=== PATIENT | male | born 1950 | race Caucasian/White ===

== ENCOUNTER 2016-02-22 02:11 | Emergency (ER) | payer OTHER ==
[2016-02-22 02:18] VITALS: TEMP 98.3
[2016-02-22 02:46] LABS: Appearance,Urine Cloudy (Clear); Bilirubin,Urine Negative (Negative); Glucose,Urine (UA) Negative (Negative); Ketones,Urine 1+ (Negative); Leukocyte Esterase,Urine Large (Negative); Mucus,Urine Rare /hpf; Nitrite,Urine Positive (Negative); PH, Urine 5.5 (5.0-8.0); Particle Count 20324; Protein,Urine Trace (Negative); RBC,Urine 7 /hpf (0-5); Specific Gravity,Urine 1.012 (1.001-1.035); UA Billing (MACRO vs. MICRO) MICRO; Urobilinogen,Urine <2.0 mg/dL (<2.0); WBC,Urine >182 /hpf (0-5)
[2016-02-22] MEDS ORDERED: CIPROFLOXACIN HCL 500 MG TAB PO STA (03:11)
--- NOTE | 2016-02-22 03:13 | ED ---
General Adult HPI - General Chief complaint: Urogenital Stated complaint: Male Time Seen by Provider: 02/22/16 02:23 Source: patient, RN notes reviewed, old records reviewed Mode of arrival: ambulatory Limitations: no limitations - History of Present Illness Initial comments: This is a 65-year-old male the ER for evaluation. This patient presents for evaluation of clogged Manrique. Patient unable to urinate. Patient was seen by his urologist earlier today and had Manrique removed after bowel movement urinary retention. Patient states he did have one initial urination and since then has not been able to urinate by himself. Complains of severe abdominal pain no bleeding - Related Data Home Medications Medication Instructions Recorded Confirmed Finasteride [Proscar] 5 mg PO DAILY 02/04/16 02/22/16 Previous Rx's Medication Instructions Recorded Tamsulosin [Flomax] 0.4 mg PO DAILY #7 cap 12/14/15 Ciprofloxacin HCl [Cipro] 500 mg PO Q12HR #20 tablet 02/22/16 Nitrofurantoin Monohyd/M-Cryst 100 mg PO Q12HR #14 cap 02/22/16 [Macrobid] Allergies Allergy/AdvReac Type Severity Reaction Status Date / Time No Known Allergies Allergy Verified 02/22/16 02:19 Review of Systems ROS Statement: Those systems with pertinent positive or pertinent negative responses have been documented in the HPI. ROS Other: All systems not noted in ROS Statement are negative. Past Medical History Past Medical History: No Reported History Additional Past Medical History / Comment(s): urine retention, BPH History of Any Multi-Drug Resistant Organisms: None Reported Past Surgical History: No Surgical Hx Reported Past Psychological History: No Psychological Hx Reported Smoking Status: Never smoker Past Alcohol Use History: None Reported Past Drug Use History: None Reported General Exam Limitations: no limitations General appearance: alert, in no apparent distress, anxious Head exam: Present: atraumatic, normocephalic, normal inspection Eye exam: Present: normal appearance, PERRL, EOMI. Absent: scleral icterus, conjunctival injection, periorbital swelling ENT exam: Present: normal exam, mucous membranes moist Neck exam: Present: normal inspection. Absent: tenderness, meningismus, lymphadenopathy Respiratory exam: Present: normal lung sounds bilaterally. Absent: respiratory distress, wheezes, rales, rhonchi, stridor Cardiovascular Exam: Present: regular rate, normal rhythm, normal heart sounds. Absent: systolic murmur, diastolic murmur, rubs, gallop, clicks GI/Abdominal exam: Present: soft, normal bowel sounds. Absent: distended, tenderness, guarding, rebound, rigid Extremities exam: Present: normal inspection, full ROM, normal capillary refill. Absent: tenderness, pedal edema, joint swelling, calf tenderness Back exam: Present: normal inspection Neurological exam: Present: alert, oriented X3, CN II-XII intact Psychiatric exam: Present: normal affect, normal mood Skin exam: Present: warm, dry, intact, normal color. Absent: rash Course Vital Signs 02/22/16 02:12 Temperature 98.3 F Pulse Rate 116 H Respiratory 18 Rate Blood Pressure 170/90 O2 Sat by Pulse 99 Oximetry - Reevaluation(s) Reevaluation #1: 02/22/16 03:40 Manrique catheter was inserted with good relief of symptoms Medical Decision Making - Medical Decision Making 65 male with recurrent UTI, recurrent urinary retention. Patient has full place and can be discharged home - Lab Data Lab Results 02/22/16 Range/Units 02:30 Urine Color Yellow Urine Appearance Cloudy (Clear) Urine pH 5.5 (5.0-8.0) Ur Specific [place] 1.012 (1.001-1.035) Urine Protein Trace H (Negative) Urine Glucose (UA) Negative (Negative) Urine Ketones 1+ H (Negative) Urine Blood Trace H (Negative) Urine Nitrate Positive (Negative) Urine Bilirubin Negative (Negative) Urine Urobilinogen <2.0 (<2.0) mg/dL Ur Leukocyte Esterase Large H (Negative) Urine RBC 7 H (0-5) /hpf Urine WBC >182 H (0-5) /hpf Urine WBC Clumps Many H (None) /hpf Urine Mucus Rare H (None) /hpf Disposition Clinical Impression: Urinary retention, UTI (urinary tract infection) Disposition: HOME SELF-CARE Condition: Good Instructions: Urinary Tract Infection in Men (ED), Urinary Retention in Men (ED ) Prescriptions: Ciprofloxacin HCl [Cipro] 500 mg PO Q12HR #20 tablet Nitrofurantoin Monohyd/M-Cryst [Macrobid] 100 mg PO Q12HR #14 cap Referrals: None,Stated [Primary Care Provider] - 1-2 days
[2016-02-22 03:40] VITALS: BP 116/76; PULSE 80; RESP 16
== END 2016-02-22 03:39 | disposition home or self-care (01) ==
LOC: EC 02:11
DX: R33.9 Retention of urine, unspecified (principal); N40.1 Benign prostatic hyperplasia with lower urinary tract symptoms; N39.0 Urinary tract infection, site not specified; Z79.899 Other long term (current) drug therapy
CPT/HCPCS: 51702; 81001; 87077; 87086; 87186; 99284

== ENCOUNTER 2016-03-31 10:47 | Emergency (ER) | payer OTHER ==
[2016-03-31 11:02] VITALS: BP 153/87; PULSE 107; RESP 20; TEMP 96.8
--- NOTE | 2016-03-31 11:53 | ED ---
Male Urogenital HPI - General Chief complaint: Urogenital Stated complaint: block in catheter Time Seen by Provider: 03/31/16 11:17 Source: patient, RN notes reviewed Mode of arrival: ambulatory Limitations: no limitations - History of Present Illness Initial comments: 65-year-old male present emergency Department chief complaint of foot From. Patient States That He Feels That His Block. Patient States He Is Getting Some Urine out States She Has Lower Abdominal Pressure. Patient States He Normally Has Problems Every Few Weeks with His Catheter. Patient States Has Not Changed in 3 Weeks. Patient Denies Fever, Chills, Flank Pain. Patient States He Does Not Feel Sick. Patient States That His Urine Has Been Cloudy. - Related Data Home Medications Medication Instructions Recorded Confirmed Finasteride [Proscar] 5 mg PO DAILY 02/04/16 02/22/16 Previous Rx's Medication Instructions Recorded Tamsulosin [Flomax] 0.4 mg PO DAILY #7 cap 12/14/15 Nitrofurantoin Monohyd/M-Cryst 100 mg PO Q12HR #14 cap 02/22/16 [Macrobid] RX: Ciprofloxacin HCl [Cipro] 500 mg PO Q12HR #20 tablet 02/22/16 Ciprofloxacin HCl [Cipro] 500 mg PO Q12HR #20 tablet 03/31/16 Allergies Allergy/AdvReac Type Severity Reaction Status Date / Time No Known Allergies Allergy Verified 02/22/16 02:19 Review of Systems ROS Statement: Those systems with pertinent positive or pertinent negative responses have been documented in the HPI. ROS Other: All systems not noted in ROS Statement are negative. Past Medical History Past Medical History: No Reported History Additional Past Medical History / Comment(s): urine retention, BPH History of Any Multi-Drug Resistant Organisms: None Reported Past Surgical History: No Surgical Hx Reported Past Psychological History: No Psychological Hx Reported Smoking Status: Never smoker Past Alcohol Use History: None Reported Past Drug Use History: None Reported General Exam Limitations: no limitations General appearance: alert, in no apparent distress Neck exam: Present: normal inspection. Absent: tenderness, meningismus, lymphadenopathy Respiratory exam: Present: normal lung sounds bilaterally. Absent: respiratory distress, wheezes, rales, rhonchi, stridor Cardiovascular Exam: Present: regular rate, normal rhythm, normal heart sounds. Absent: systolic murmur, diastolic murmur, rubs, gallop, clicks GI/Abdominal exam: Present: soft, tenderness (Mild suprapubic tenderness), normal bowel sounds. Absent: distended, guarding, rebound, rigid exam: Present: other (Manrique catheter in place there is some crusting, drainage noted around the catheter.) Back exam: Absent: CVA tenderness (R), CVA tenderness (L) Course Vital Signs 03/31/16 11:00 Temperature 96.8 F L Pulse Rate 107 H Respiratory 20 Rate Blood Pressure 153/87 O2 Sat by Pulse 100 Oximetry Medical Decision Making - Lab Data Lab Results 03/31/16 Range/Units 11:50 Urine Color Yellow Urine Appearance Turbid (Clear) Urine pH 6.5 (5.0-8.0) Ur Specific [place] 1.016 (1.001-1.035) Urine Protein 1+ H (Negative) Urine Glucose (UA) Negative (Negative) Urine Ketones Negative (Negative) Urine Blood Moderate H (Negative) Urine Nitrate Positive (Negative) Urine Bilirubin Negative (Negative) Urine Urobilinogen <2.0 (<2.0) mg/dL Ur Leukocyte Esterase Large H (Negative) Urine RBC >182 H (0-5) /hpf Urine WBC >182 H (0-5) /hpf Urine Bacteria Rare H (None) /hpf Disposition Clinical Impression: UTI (urinary tract infection), Manrique catheter problem Disposition: HOME SELF-CARE Condition: Stable Instructions: Urinary Tract Infection in Men (ED) Additional Instructions: Please return to the Emergency Department if symptoms worsen or any other concerns. Prescriptions: Ciprofloxacin HCl [Cipro] 500 mg PO Q12HR #20 tablet Time of Disposition: 12:33
[2016-03-31 12:28] LABS: Appearance,Urine Turbid (Clear); Bacteria,Urine Rare /hpf; Bilirubin,Urine Negative (Negative); Glucose,Urine (UA) Negative (Negative); Ketones,Urine Negative (Negative); Leukocyte Esterase,Urine Large (Negative); Nitrite,Urine Positive (Negative); PH, Urine 6.5 (5.0-8.0); Particle Count 104383; Protein,Urine 1+ (Negative); RBC,Urine >182 /hpf (0-5); Specific Gravity,Urine 1.016 (1.001-1.035); UA Billing (MACRO vs. MICRO) MICRO; Urobilinogen,Urine <2.0 mg/dL (<2.0); WBC,Urine >182 /hpf (0-5)
== END 2016-03-31 12:50 | disposition home or self-care (01) ==
LOC: EC 10:47
DX: N39.0 Urinary tract infection, site not specified (principal); T83.018A Breakdown (mechanical) of other urinary catheter, initial encounter; N40.0 Benign prostatic hyperplasia without lower urinary tract symptoms; Z79.899 Other long term (current) drug therapy
CPT/HCPCS: 81001; 87077; 87086; 87186; 99283

== ENCOUNTER 2016-04-20 12:42 | Emergency (ER) | payer OTHER ==
--- NOTE | 2016-04-20 15:01 | ED ---
General Adult HPI - General Chief complaint: Recheck/Abnormal Lab/Rx Stated complaint: Cath Blocked Time Seen by Provider: 04/20/16 13:13 Source: patient Mode of arrival: ambulatory Limitations: no limitations - History of Present Illness Initial comments: This patient is a 65-year-old man who presents to be evaluated for what he suspects is an obstruction of his Manrique catheter. The patient states that he had noted a little bit of blood present, and then he hadn't had much drainage overnight. Patient has had Manrique catheter for months now and he states this is related to BPH. It was last changed approximately 3 weeks ago. The patient has some mild suprapubic pressure. Denies fever or chills, palpitations or other symptoms of infection. -: hour(s) Quality: dull Consistency: constant Improves with: none Worsens with: none Associated Symptoms: denies other symptoms Treatments Prior to Arrival: none - Related Data Home Medications Medication Instructions Recorded Confirmed Finasteride [Proscar] 5 mg PO DAILY 02/04/16 04/20/16 Previous Rx's Medication Instructions Recorded Tamsulosin [Flomax] 0.4 mg PO DAILY #7 cap 12/14/15 Ciprofloxacin HCl [Cipro] 500 mg PO Q12HR #14 tablet 04/20/16 Allergies Allergy/AdvReac Type Severity Reaction Status Date / Time No Known Allergies Allergy Verified 04/20/16 14:03 Review of Systems ROS Statement: Those systems with pertinent positive or pertinent negative responses have been documented in the HPI. ROS Other: All systems not noted in ROS Statement are negative. Constitutional: Denies: fever, chills Respiratory: Denies: cough, dyspnea Cardiovascular: Denies: chest pain, palpitations, syncope Gastrointestinal: Reports: as per HPI, abdominal pain. Denies: nausea, vomiting , diarrhea, constipation Genitourinary: Reports: hematuria, other (Indwelling catheter). Denies: testicular pain, testicular mass Musculoskeletal: Denies: back pain Skin: Denies: rash Neurological: Denies: headache, weakness, numbness Past Medical History Past Medical History: No Reported History Additional Past Medical History / Comment(s): urine retention, BPH History of Any Multi-Drug Resistant Organisms: None Reported Past Surgical History: No Surgical Hx Reported Past Psychological History: No Psychological Hx Reported Smoking Status: Never smoker Past Alcohol Use History: None Reported Past Drug Use History: None Reported General Exam Limitations: no limitations General appearance: alert, in no apparent distress Head exam: Present: atraumatic, normocephalic Eye exam: Present: normal appearance. Absent: scleral icterus, conjunctival injection ENT exam: Present: normal oropharynx Neck exam: Present: normal inspection, full ROM Respiratory exam: Present: normal lung sounds bilaterally. Absent: respiratory distress, wheezes, rales, rhonchi, stridor Cardiovascular Exam: Present: regular rate, normal rhythm, normal heart sounds. Absent: systolic murmur, diastolic murmur, rubs, gallop GI/Abdominal exam: Present: soft, tenderness, normal bowel sounds, mass, other ( There is some mild suprapubic fullness and mild tenderness consistent with palpable bladder). Absent: distended, guarding, rebound, rigid, pulsatile mass , hernia exam: Present: other (There is an indwelling Manrique catheter) Extremities exam: Present: normal inspection, normal capillary refill. Absent: pedal edema, calf tenderness Back exam: Present: normal inspection. Absent: CVA tenderness (R), CVA tenderness (L) Skin exam: Present: warm, dry, intact, normal color. Absent: rash, cyanosis, diaphoretic, erythema, petechiae, pallor, mottled Course Vital Signs 04/20/16 13:06 Temperature 97.1 F L Pulse Rate 86 Respiratory 20 Rate Blood Pressure 150/96 O2 Sat by Pulse 98 Oximetry Procedures - Catheter Insertion (Urinary) Indications: replaced: fell out/removed/no longer functioning Bladder Scan/US before Catheterization: Yes Type of Catheter Inserted: Manrique Catheter Balloon Size (mLs): 10 Topical Anesthesia Used: No Results: successfully catheterized-immediate flow Patient Tolerated Procedure: well Complications: none, other (The urine is yellow with a couple of small clots. The urine is grossly cloudy.) Disposition Clinical Impression: UTI (urinary tract infection), Manrique catheter problem Disposition: HOME SELF-CARE Condition: Fair Instructions: Urinary Tract Infection in Men (ED), Manrique Catheter Placement and Care (ED) Prescriptions: Ciprofloxacin HCl [Cipro] 500 mg PO Q12HR #14 tablet Referrals: None,Stated [Primary Care Provider] - 1-2 days Jarrod Waters MD [STAFF PHYSICIAN] - 1-2 days
[2016-04-20] MEDS ORDERED: LEVOFLOXACIN 750 MG TAB PO STA (15:04)
[2016-04-20 15:21] LABS: Appearance,Urine Cloudy (Clear); Bacteria,Urine Moderate /hpf; Bilirubin,Urine Negative (Negative); Glucose,Urine (UA) Negative (Negative); Ketones,Urine Negative (Negative); Leukocyte Esterase,Urine Large (Negative); Mucus,Urine Rare /hpf; Nitrite,Urine Negative (Negative); PH, Urine 5.5 (5.0-8.0); Particle Count 113929; Protein,Urine 1+ (Negative); RBC,Urine >182 /hpf (0-5); Specific Gravity,Urine 1.012 (1.001-1.035); UA Billing (MACRO vs. MICRO) MICRO; Urobilinogen,Urine <2.0 mg/dL (<2.0); WBC,Urine >182 /hpf (0-5)
[2016-04-20 15:32] VITALS: BP 130/85; PULSE 70; RESP 18; TEMP 97.4
== END 2016-04-20 15:31 | disposition home or self-care (01) ==
LOC: EC 12:42
DX: N39.0 Urinary tract infection, site not specified (principal); T83.091A Other mechanical complication of indwelling urethral catheter, initial encounter; N40.0 Benign prostatic hyperplasia without lower urinary tract symptoms; Z79.899 Other long term (current) drug therapy
CPT/HCPCS: 51701; 81001; 87077; 87086; 87186; 99283

== ENCOUNTER 2016-07-20 08:29 | Emergency (ER) | payer MEDICARE, OTHER ==
[2016-07-20 08:33] VITALS: TEMP 97.8
--- NOTE | 2016-07-20 08:46 | ED ---
Male Urogenital HPI - General Source: patient, RN notes reviewed Mode of arrival: ambulatory Limitations: no limitations <Yolanda Valenzuela - Last Filed: 07/20/16 10:45> <Tato Francis - Last Filed: 07/20/16 10:48> - General Chief complaint: Urogenital Stated complaint: Male Time Seen by Provider: 07/20/16 08:34 - History of Present Illness Initial comments: Patient is a 65-year-old male presents emergency room for evaluation of blocked dinero catheter. Patient states that dinero catheter has been placed for the past 3 months due to BPH. Patient states the last time his catheter was changed was about a month ago. Patient states has been no output in his Dinero bag since last night. Patient states he is beginning to have discomfort in his bladder. Patient states he follows up with Dr. Ann for his care. (Yolanda Valenzuela) - Related Data Home Medications Medication Instructions Recorded Confirmed Finasteride [Proscar] 5 mg PO DAILY 02/04/16 04/20/16 Previous Rx's Medication Instructions Recorded Tamsulosin [Flomax] 0.4 mg PO DAILY #7 cap 12/14/15 Ciprofloxacin HCl [Cipro] 500 mg PO Q12HR #14 tablet 04/20/16 Levofloxacin [Levaquin] 500 mg PO DAILY #6 tab 07/20/16 Allergies Allergy/AdvReac Type Severity Reaction Status Date / Time No Known Allergies Allergy Verified 07/20/16 08:33 Review of Systems ROS Other: All systems not noted in ROS Statement are negative. <Yolanda Valenzuela - Last Filed: 07/20/16 10:45> ROS Other: All systems not noted in ROS Statement are negative. <Tato Francis - Last Filed: 07/20/16 10:48> ROS Statement: Those systems with pertinent positive or pertinent negative responses have been documented in the HPI. Past Medical History Past Medical History: Prostate Disorder Additional Past Medical History / Comment(s): urine retention, BPH History of Any Multi-Drug Resistant Organisms: None Reported Past Surgical History: No Surgical Hx Reported Past Psychological History: No Psychological Hx Reported Smoking Status: Never smoker Past Alcohol Use History: None Reported Past Drug Use History: None Reported <Yolanda Valenzuela - Last Filed: 07/20/16 10:45> General Exam Limitations: no limitations General appearance: alert, anxious Head exam: Present: atraumatic, normocephalic, normal inspection Eye exam: Present: normal appearance ENT exam: Present: normal exam Neck exam: Present: normal inspection Respiratory exam: Present: normal lung sounds bilaterally. Absent: respiratory distress Cardiovascular Exam: Present: regular rate, normal rhythm, normal heart sounds GI/Abdominal exam: Present: soft, tenderness (Suprapubic discomfort), normal bowel sounds. Absent: distended, guarding, rebound, rigid exam: Present: other (Indwelling Dinero catheter present). Absent: normal inspection (Dried feces over shaft of penis, indwelling catheter and upper thighs.) Extremities exam: Present: normal inspection Back exam: Present: normal inspection Neurological exam: Present: alert, oriented X3, CN II-XII intact, normal gait Psychiatric exam: Present: normal affect, normal mood Skin exam: Present: warm, dry, intact, normal color. Absent: rash <Yolanda Valenzuela - Last Filed: 07/20/16 10:45> <Tato Francis - Last Filed: 07/20/16 10:48> - General Exam Comments Initial Comments: Standing up in exam room, mild discomfort (Yolanda Valenzuela) Course <Yolanda Valenzuela - Last Filed: 07/20/16 10:45> <Tato Francis - Last Filed: 07/20/16 10:48> Vital Signs 07/20/16 07/20/16 08:31 10:39 Temperature 97.8 F Pulse Rate 108 H 73 Respiratory 20 16 Rate Blood Pressure 195/102 142/83 O2 Sat by Pulse 97 99 Oximetry - Reevaluation(s) Reevaluation #1: 07/20/16 10:48 I did personally do a [id number] evaluation the patient. Patient is feeling much improved his abdomen soft nontender fully catheter is placed. It does appear to be functioning well patient will be discharged. I do agree with the assessment and plan (Tato Francis) Medical Decision Making <Yolanda Valenzuela - Last Filed: 07/20/16 10:45> <Tato Francis - Last Filed: 07/20/16 10:48> - Medical Decision Making Patient is a 65-year-old male presents emergency room for evaluation urinary retention. Patient states his Dinero catheter has not been draining last night. Upon examination, patient had feces all over shaft of his penis around the Dinero catheter and on his upper thighs. Patient states that he was not taught how to properly clean the Dinero catheter. Once Dinero catheter was removed, small blood clots flowing from the urethra. A lot of exudate noted on the indwelling portion of the Dinero catheter. Urinalysis was ordered, Dinero catheter was replaced and bladder was flushed. Urinalysis suspicious for urinary tract infection. Patient be placed on Levaquin. Patient given his first dose here. Advised patient to follow-up with his urologist. Return parameters discussed. Case discussed Dr. Francis. (Yolanda Valenzuela) - Lab Data Lab Results 07/20/16 Range/Units 09:30 Urine Color Yellow Urine Appearance Cloudy (Clear) Urine pH 6.0 (5.0-8.0) Ur Specific [place] 1.014 (1.001-1.035) Urine Protein 1+ H (Negative) Urine Glucose (UA) Negative (Negative) Urine Ketones Negative (Negative) Urine Blood Moderate H (Negative) Urine Nitrite Negative (Negative) Urine Bilirubin Negative (Negative) Urine Urobilinogen <2.0 (<2.0) mg/dL Ur Leukocyte Esterase Large H (Negative) Urine RBC >182 H (0-5) /hpf Urine WBC >182 H (0-5) /hpf Urine WBC Clumps Occasional H (None) /hpf Urine Bacteria Many H (None) /hpf Urine Mucus Rare H (None) /hpf Disposition Time of Disposition: 10:07 <Yolanda Valenzuela - Last Filed: 07/20/16 10:45> <Tato Francis - Last Filed: 07/20/16 10:48> Clinical Impression: Urinary tract infection, Encounter for Dinero catheter replacement Disposition: HOME SELF-CARE Condition: Good Instructions: Urinary Tract Infection in Men (ED), Dinero Catheter Placement and Care (ED) Additional Instructions: Keep Dinero catheter clean. Please follow-up with urologist in 24-48 hours. Begin taking Levaquin tomorrow as directed. If any new symptom arises or symptoms worsen, return to ER as soon as possible. Prescriptions: Levofloxacin [Levaquin] 500 mg PO DAILY #6 tab Referrals: Yaya Ann MD [STAFF PHYSICIAN] - 1-2 days
[2016-07-20 10:00] LABS: Appearance,Urine Cloudy (Clear); Bacteria,Urine Many /hpf; Bilirubin,Urine Negative (Negative); Glucose,Urine (UA) Negative (Negative); Ketones,Urine Negative (Negative); Leukocyte Esterase,Urine Large (Negative); Mucus,Urine Rare /hpf; Nitrite,Urine Negative (Negative); Particle Count 36464; Protein,Urine 1+ (Negative); RBC,Urine >182 /hpf (0-5); Specific Gravity,Urine 1.014 (1.001-1.035); UA Billing (MACRO vs. MICRO) MICRO; Urobilinogen,Urine <2.0 mg/dL (<2.0); WBC,Urine >182 /hpf (0-5)
[2016-07-20] MEDS ORDERED: LEVOFLOXACIN 500 MG TAB PO STA (10:06)
[2016-07-20 10:42] VITALS: BP 142/83; PULSE 73; RESP 16
== END 2016-07-20 10:42 | disposition home or self-care (01) ==
LOC: EC 08:29
DX: N39.0 Urinary tract infection, site not specified (principal); T83.592A Infection and inflammatory reaction due to indwelling ureteral stent, initial encounter; N40.0 Benign prostatic hyperplasia without lower urinary tract symptoms; Z79.899 Other long term (current) drug therapy; Y73.8 Miscellaneous gastroenterology and urology devices associated with adverse incidents, not elsewhere classified
CPT/HCPCS: 51702; 81001; 99283

== ENCOUNTER 2016-10-27 08:06 | Emergency (ER) | payer MEDICARE, OTHER ==
[2016-10-27 08:11] VITALS: BP 163/94; PULSE 85; RESP 18; TEMP 98.6
--- NOTE | 2016-10-27 08:16 | ED ---
Male Urogenital HPI - General Chief complaint: Urogenital Stated complaint: cath problems Time Seen by Provider: 10/27/16 08:15 Source: patient, RN notes reviewed, old records reviewed Mode of arrival: ambulatory Limitations: no limitations - History of Present Illness Initial comments: 66 year old male presents emergency Department chief complaint of thinking that his catheter is blocked. Patient reports is not been able to produce any urine through his catheter overnight. Patient states he does have some abdominal pain due to some bladder distention. Denies any fever or chills chest pain shortness breath nausea or vomiting. Denies any recent urinary tract infections. Patient follows up with urologist Dr. Ann. Patient reports that this Dinero was placed in August. Patient is exposed to have another Dinero placed the end of October. He relates that he has bandlike catheter due to BPH. Patient denies any recent fever, chills, shortness of breath, chest pain, back pain, abdominal pain, nausea vomiting, numbness or tingling, dysuria or hematuria, constipation or diarrhea, headaches or visual changes, or any other current symptoms - Related Data Home Medications Medication Instructions Recorded Confirmed Finasteride [Proscar] 5 mg PO DAILY 02/04/16 10/27/16 Previous Rx's Medication Instructions Recorded Tamsulosin [Flomax] 0.4 mg PO DAILY #7 cap 12/14/15 Ciprofloxacin HCl [Cipro] 500 mg PO Q12HR #14 tablet 10/27/16 Allergies Allergy/AdvReac Type Severity Reaction Status Date / Time No Known Allergies Allergy Verified 10/27/16 08:48 Review of Systems ROS Statement: Those systems with pertinent positive or pertinent negative responses have been documented in the HPI. ROS Other: All systems not noted in ROS Statement are negative. Past Medical History Past Medical History: Prostate Disorder Additional Past Medical History / Comment(s): urine retention, BPH, dinero catheter History of Any Multi-Drug Resistant Organisms: None Reported Past Surgical History: No Surgical Hx Reported Past Psychological History: No Psychological Hx Reported Smoking Status: Never smoker Past Alcohol Use History: None Reported Past Drug Use History: None Reported General Exam - General Exam Comments Initial Comments: 66-year-old male. No distress. Limitations: no limitations General appearance: alert, in no apparent distress Head exam: Present: atraumatic, normocephalic, normal inspection Eye exam: Present: normal appearance, PERRL, EOMI. Absent: scleral icterus, conjunctival injection, periorbital swelling ENT exam: Present: normal exam, mucous membranes moist Neck exam: Present: normal inspection. Absent: tenderness, meningismus, lymphadenopathy Respiratory exam: Present: normal lung sounds bilaterally. Absent: respiratory distress, wheezes, rales, rhonchi, stridor Cardiovascular Exam: Present: regular rate, normal rhythm, normal heart sounds. Absent: systolic murmur, diastolic murmur, rubs, gallop, clicks GI/Abdominal exam: Present: soft, tenderness (Mild suprapubic tenderness.), normal bowel sounds. Absent: distended, guarding, rebound, rigid exam: Present: other (Indwelling Dinero catheter.). Absent: normal inspection Extremities exam: Present: normal inspection, full ROM, normal capillary refill. Absent: tenderness, pedal edema, joint swelling, calf tenderness Back exam: Present: normal inspection Neurological exam: Present: alert, oriented X3, CN II-XII intact Psychiatric exam: Present: normal affect, normal mood Skin exam: Present: warm, dry, intact, normal color. Absent: rash Course Vital Signs 10/27/16 08:09 Temperature 98.6 F Pulse Rate 85 Respiratory 18 Rate Blood Pressure 163/94 O2 Sat by Pulse 99 Oximetry Medical Decision Making - Medical Decision Making C6-year-old male presents emergency room with a blocked Dinero catheter. At this time we did do a bladder scan in the supposed It is greater than 200 mL. Patient does have some mild to review tenderness. Attempt was made to flush the catheter to break up any clots however it was unsuccessful. Patient will receive a new indwelling Dinero catheter. Urinalysis obtained. His urinalysis does show significant signs of infection. Significant blood with clots were noted within the "Dinero catheter was changed. His functioning at this time. Patient does have some relief of the pressure. Patient will be discharged at this time with close follow-up with urology. Patient agrees to treatment plan will comply. Return parameters were discussed. - Lab Data Lab Results 10/27/16 Range/Units 08:35 Urine Color Yellow Urine Appearance Cloudy (Clear) Urine pH 6.0 (5.0-8.0) Ur Specific [place] 1.017 (1.001-1.035) Urine Protein Trace H (Negative) Urine Glucose (UA) Negative (Negative) Urine Ketones Negative (Negative) Urine Blood Large H (Negative) Urine Nitrite Negative (Negative) Urine Bilirubin Negative (Negative) Urine Urobilinogen <2.0 (<2.0) mg/dL Ur Leukocyte Esterase Large H (Negative) Urine RBC >182 H (0-5) /hpf Urine WBC >182 H (0-5) /hpf Urine WBC Clumps Occasional H (None) /hpf Urine Bacteria Many H (None) /hpf Urine Mucus Occasional H (None) /hpf Disposition Clinical Impression: Malfunction of Dinero catheter, UTI (urinary tract infection) Disposition: HOME SELF-CARE Condition: Good Instructions: Urinary Tract Infection in Men (ED) Additional Instructions: Patient has a follow-up with urologist within the next 1-2 days. Return if there is any further malfunction severe catheter. Patient advised to completely anabiotic prescription for urinary tract infection. Prescriptions: Ciprofloxacin HCl [Cipro] 500 mg PO Q12HR #14 tablet Referrals: None,Stated [Primary Care Provider] - 1-2 days Yaya Ann MD [STAFF PHYSICIAN] - 1-2 days Time of Disposition: 08:57
[2016-10-27 08:55] LABS: Appearance,Urine Cloudy (Clear); Bacteria,Urine Many /hpf; Bilirubin,Urine Negative (Negative); Glucose,Urine (UA) Negative (Negative); Ketones,Urine Negative (Negative); Leukocyte Esterase,Urine Large (Negative); Mucus,Urine Occasional /hpf; Nitrite,Urine Negative (Negative); Particle Count 48622; Protein,Urine Trace (Negative); RBC,Urine >182 /hpf (0-5); Specific Gravity,Urine 1.017 (1.001-1.035); UA Billing (MACRO vs. MICRO) MICRO; Urobilinogen,Urine <2.0 mg/dL (<2.0); WBC,Urine >182 /hpf (0-5)
[2016-10-27] MEDS ORDERED: CIPROFLOXACIN HCL 500 MG TAB PO STA (08:56)
== END 2016-10-27 09:21 | disposition home or self-care (01) ==
LOC: EC 08:06
DX: T83.511A Infection and inflammatory reaction due to indwelling urethral catheter, initial encounter (principal); N39.0 Urinary tract infection, site not specified; Z79.899 Other long term (current) drug therapy; Y84.6 Urinary catheterization as the cause of abnormal reaction of the patient, or of later complication, without mention of misadventure at the time of the procedure
CPT/HCPCS: 51702; 51798; 81001; 87086; 99284

== ENCOUNTER 2017-06-29 02:45 | Emergency (ER) | payer MEDICARE, OTHER ==
[2017-06-29 02:51] VITALS: BP 174/100; PULSE 74; RESP 16; TEMP 98.5
--- NOTE | 2017-06-29 03:16 | ED ---
Male Urogenital HPI - General Chief complaint: Urogenital Stated complaint: Male Time Seen by Provider: 06/29/17 02:57 Source: patient, RN notes reviewed Mode of arrival: ambulatory Limitations: no limitations - History of Present Illness Initial comments: This is a 66-year-old male who presents to the emergency department with chief complaint of Dinero catheter obstruction. Patient states that he has had Dinero catheters once every month for the past 6 months for BPH. He states that they frequently become obstructed and he must have them changed out regularly. Patient states that last night at approximately 6 or 7 PM his urinary catheter stopped draining. He did attempt to flush it at home himself but was unsuccessful. He denies any significant abdominal pain, nausea or vomiting, diarrhea or constipation, fever or chills. He requests to have Dinero catheter changed to allow for successful drainage. Patient does see Dr. Ann, local urologist. - Related Data Home Medications Medication Instructions Recorded Confirmed Finasteride [Proscar] 5 mg PO DAILY 02/04/16 10/27/16 Previous Rx's Medication Instructions Recorded Tamsulosin [Flomax] 0.4 mg PO DAILY #7 cap 12/14/15 Ciprofloxacin HCl [Cipro] 500 mg PO Q12HR #14 tablet 10/27/16 Allergies Allergy/AdvReac Type Severity Reaction Status Date / Time No Known Allergies Allergy Verified 06/29/17 02:51 Review of Systems ROS Statement: Those systems with pertinent positive or pertinent negative responses have been documented in the HPI. ROS Other: All systems not noted in ROS Statement are negative. Past Medical History Past Medical History: Prostate Disorder Additional Past Medical History / Comment(s): urine retention, BPH, dinero catheter History of Any Multi-Drug Resistant Organisms: None Reported Past Surgical History: No Surgical Hx Reported Past Psychological History: No Psychological Hx Reported Smoking Status: Never smoker Past Alcohol Use History: None Reported Past Drug Use History: None Reported General Exam - General Exam Comments Initial Comments: General: Awake and alert, well-developed; in no apparent distress. HEENT: Head atraumatic, normocephalic. Pupils are equal, round and reactive to light. Extraocular movements intact. Oropharynx moist without erythema or exudate. Neck: Supple. Normal ROM. Cardiovascular: Regular rate and rhythm. No murmurs, rubs or gallops. Chest symmetrical. Respiratory: Lungs clear to auscultation bilaterally. No wheezes, rales or rhonchi. Normal respiratory effort with no use of accessory muscles. Abdomen: Soft, non-tender, non-distended. No rigidity, rebound or guarding. Normal bowel sounds in all 4 quadrants. Musculoskeletal: Normal ROM, no tenderness bilateral upper and lower extremities. Ambulating normally. Skin: [place], warm and dry without rashes or lesions. Neurological: Alert and oriented x3. CN II-XII grossly intact. Speech is fluent and answers are appropriate. No focal neuro deficits. Psychiatric: Normal mood and affect. No overt signs of depression or anxiety noted. Limitations: no limitations Course Vital Signs 06/29/17 02:48 Temperature 98.5 F Pulse Rate 74 Respiratory 16 Rate Blood Pressure 174/100 O2 Sat by Pulse 98 Oximetry Medical Decision Making - Medical Decision Making This is a 66-year-old male with chronic Dinero catheter use who presents to the emergency department with chief complaint of Dinero catheter obstruction. Patient states that for the past 8-9 hours his Dinero catheter has not been draining. He did try to flush it himself at home but was unsuccessful. He requests to have a new Dinero catheter placed. He does have a follow-up appointment scheduled with Dr. Ann this week. Denies any symptoms. Vital signs are stable and he is in no acute distress. Catheter was placed and is successfully draining. Patient will be discharged home at this time. He is to follow-up with Dr. Ann as scheduled. Disposition Clinical Impression: Malfunction of Dinero catheter Disposition: HOME SELF-CARE Condition: Good Instructions: Dinero Catheter Placement and Care (ED) Additional Instructions: Follow-up with Dr. Ann as scheduled. Please follow up with primary care provider within 1-2 days. Return to emergency department if symptoms should worsen or any concerns arise. Is patient prescribed a controlled substance at d/c from ED?: No Referrals: None,Stated [Primary Care Provider] - 1-2 days Time of Disposition: 03:19
== END 2017-06-29 03:32 | disposition home or self-care (01) ==
LOC: EC 02:45
DX: T83.091A Other mechanical complication of indwelling urethral catheter, initial encounter (principal); N42.9 Disorder of prostate, unspecified; Z79.899 Other long term (current) drug therapy
CPT/HCPCS: 51702; 99283

== ENCOUNTER 2017-11-25 01:56 | Emergency (ER) | payer MEDICARE, OTHER ==
[2017-11-25 02:14] VITALS: RESP 16; TEMP 98.6
--- NOTE | 2017-11-25 03:00 | ED ---
General Adult HPI - General Source: patient, RN notes reviewed Mode of arrival: ambulatory Limitations: no limitations <Brea Mccarthy - Last Filed: 11/25/17 03:38> <Marely Alcala - Last Filed: 11/25/17 03:58> - General Chief complaint: Recheck/Abnormal Lab/Rx Stated complaint: Blocked catheter Time Seen by Provider: 11/25/17 02:26 - History of Present Illness Initial comments: This is a 67-year-old male who presents to the emergency department with chief complaint of blocked dinero catheter. Patient states that he sees Dr. Ann, urologist. He states that he has a history of BPH. For the past year he has been having monthly changes to a new dinero catheter. Patient states that at around 8 PM this evening his catheter stopped draining. He states that he does have a flush at home that he was told to use if it ever became blocked. He states that he attempted to unblock the catheter 3-4 times but was unsuccessful. Patient denies any abdominal discomfort at this time. He denies any changes in urinary color. Denies any fevers or chills, chest pain or shortness of breath, abdominal pain, nausea or vomiting. (Brea Mccarthy) - Related Data Home Medications Medication Instructions Recorded Confirmed Finasteride [Proscar] 5 mg PO DAILY 02/04/16 10/27/16 Previous Rx's Medication Instructions Recorded Tamsulosin [Flomax] 0.4 mg PO DAILY #7 cap 12/14/15 Ciprofloxacin HCl [Cipro] 500 mg PO Q12HR #14 tablet 10/27/16 Allergies Allergy/AdvReac Type Severity Reaction Status Date / Time No Known Allergies Allergy Verified 11/25/17 02:14 Review of Systems ROS Other: All systems not noted in ROS Statement are negative. <Brea Mccarthy - Last Filed: 11/25/17 03:38> ROS Other: All systems not noted in ROS Statement are negative. <Marely Alcala - Last Filed: 11/25/17 03:58> ROS Statement: Those systems with pertinent positive or pertinent negative responses have been documented in the HPI. Past Medical History Past Medical History: Prostate Disorder Additional Past Medical History / Comment(s): urine retention, BPH, dinero catheter History of Any Multi-Drug Resistant Organisms: None Reported Past Surgical History: No Surgical Hx Reported Past Psychological History: No Psychological Hx Reported Smoking Status: Never smoker Past Alcohol Use History: None Reported Past Drug Use History: None Reported <Brea Mccarthy - Last Filed: 11/25/17 03:38> General Exam Limitations: no limitations <Brea Mccarthy - Last Filed: 11/25/17 03:38> <Marely Alcala - Last Filed: 11/25/17 03:58> - General Exam Comments Initial Comments: General: Awake and alert, well-developed; in no apparent distress. Non- draining urinary foler catheter with leg bag is noted. HEENT: Head atraumatic, normocephalic. Pupils are equal, round and reactive to light. Extraocular movements intact. Oropharynx moist without erythema or exudate. Neck: Supple. Normal ROM. Cardiovascular: Regular rate and rhythm. No murmurs, rubs or gallops. Chest symmetrical. Respiratory: Lungs clear to auscultation bilaterally. No wheezes, rales or rhonchi. Normal respiratory effort with no use of accessory muscles. Abdomen: Soft, non-tender, non-distended. No rigidity, rebound or guarding. Musculoskeletal: Normal ROM, no tenderness bilateral upper and lower extremities. Ambulating normally. Skin: [place], warm and dry without rashes or lesions. Neurological: Alert and oriented x3. CN II-XII grossly intact. Speech is fluent and answers are appropriate. No focal neuro deficits. Psychiatric: Normal mood and affect. No overt signs of depression or anxiety noted. (Brea Mccarthy) Vital Signs 11/25/17 11/25/17 02:09 03:42 Temperature 98.6 F Pulse Rate 84 75 Respiratory 16 16 Rate Blood Pressure 157/89 155/95 O2 Sat by Pulse 99 95 Oximetry Medical Decision Making <Brea Mccarthy - Last Filed: 11/25/17 03:38> <Marely Alcala - Last Filed: 11/25/17 03:58> - Medical Decision Making This is a 67-year-old male who presents to the emergency department with chief complaint of blocked dinero catheter. Patient states his Dinero catheter has not been draining since 8 PM this evening. Patient is due for a new Dinero catheter this coming week. He has had this one for the past 3 weeks. He gets monthly changes to a new Dinero catheter for the past one year for BPH. A new catheter was initiated. It is draining well. Instructed patient to follow up with Dr. Ann outpatient. Vitals are stable and he is in no acute distress. He will be discharged home at this time. He is in agreement and voices understanding. All questions were answered. (Brea Mccarthy) I was available for consultation in the emergency department. The history and physical exam were done by the midlevel provider. I was consulted for this patient's care. I reviewed the case with the midlevel provider and based on their presentation of the patient, I agree with the assessment, medical decision making and plan of care as documented. (Marely Alcala) Disposition Is patient prescribed a controlled substance at d/c from ED?: No Time of Disposition: 03:38 <Brea Mccarthy - Last Filed: 11/25/17 03:38> <Marely Alcala - Last Filed: 11/25/17 03:58> Clinical Impression: Obstructed Dinero catheter Disposition: HOME SELF-CARE Condition: Good Instructions: Dinero Catheter Placement and Care (ED) Additional Instructions: As discussed, please follow-up with Dr. Ann. Please follow up with primary care provider within 1-2 days. Return to emergency department if symptoms should worsen or any concerns arise. Referrals: None,Stated [Primary Care Provider] - 1-2 days
[2017-11-25 03:44] VITALS: BP 155/95; PULSE 75
== END 2017-11-25 03:42 | disposition home or self-care (01) ==
LOC: EC 01:56
DX: T83.098A Other mechanical complication of other urinary catheter, initial encounter (principal); N40.0 Benign prostatic hyperplasia without lower urinary tract symptoms; Z79.899 Other long term (current) drug therapy; Y83.8 Other surgical procedures as the cause of abnormal reaction of the patient, or of later complication, without mention of misadventure at the time of the procedure
CPT/HCPCS: 51702; 99283

== ENCOUNTER 2017-12-07 05:51 | Emergency (ER) | payer MEDICARE, OTHER ==
[2017-12-07 06:10] VITALS: BP 126/87; PULSE 84; RESP 18; TEMP 97.7
--- NOTE | 2017-12-07 06:43 | ED ---
Male Urogenital HPI - General Chief complaint: Urogenital Stated complaint: Male Time Seen by Provider: 12/07/17 06:38 Source: patient Mode of arrival: ambulatory Limitations: no limitations - History of Present Illness Initial comments: I'll is a 67-year-old male with a chronic indwelling Dinero catheter presents the ER today for evaluation of possible Dinero catheter obstruction. Patient reports he hasn't had any urine output since yesterday's having some pressure in his bladder. Patient denies any other complaints. - Related Data Home Medications Medication Instructions Recorded Confirmed Finasteride [Proscar] 5 mg PO DAILY 02/04/16 12/07/17 Previous Rx's Medication Instructions Recorded Tamsulosin [Flomax] 0.4 mg PO DAILY #7 cap 12/14/15 Allergies Allergy/AdvReac Type Severity Reaction Status Date / Time No Known Allergies Allergy Verified 11/25/17 02:14 Review of Systems ROS Statement: Those systems with pertinent positive or pertinent negative responses have been documented in the HPI. ROS Other: All systems not noted in ROS Statement are negative. Past Medical History Past Medical History: Prostate Disorder Additional Past Medical History / Comment(s): urine retention, BPH, dinero catheter History of Any Multi-Drug Resistant Organisms: None Reported Past Surgical History: No Surgical Hx Reported Past Psychological History: No Psychological Hx Reported Smoking Status: Never smoker Past Alcohol Use History: None Reported Past Drug Use History: None Reported General Exam - General Exam Comments Initial Comments: Physical Exam GENERAL: Chronically ill-appearing in no acute distress HENT: Normocephalic, Atraumatic. EYES: PERRL, EOMI PULMONARY: Unlabored respirations. CARDIOVASCULAR: RRR ABDOMEN: Bladder palpable on initial evaluation, resolved with new Dinero catheter placement SKIN: Skin is clear with no lesions or rashes and otherwise unremarkable. : Circumcised penis with Dinero catheter in place NEUROLOGIC: Patient is alert and oriented x3. Moving all extremities spontaneously MUSCULOSKELETAL: Normal extremities with adequate strength and full range of motion. No lower extremity swelling or edema. No calf tenderness. PSYCHIATRIC: Normal psychiatric evaluation. Limitations: no limitations Limitations: no limitations Course Vital Signs 12/07/17 06:07 Temperature 97.7 F Pulse Rate 84 Respiratory 18 Rate Blood Pressure 126/87 O2 Sat by Pulse 99 Oximetry Medical Decision Making - Medical Decision Making Patient with an apparent Dinero catheter obstruction, Dinero catheter was exchanged with passage of clot and good output of urine. Patient reported resolution of the pressure in his bladder after new catheter was placed. This time the patient is comfortable with the plan for discharge home, patient is very familiar with Dinero catheter care Follow up with urology was Disposition Clinical Impression: Obstructed Dinero catheter Disposition: HOME SELF-CARE Condition: Good Instructions: Dinero Catheter Placement and Care (ED) Is patient prescribed a controlled substance at d/c from ED?: No Referrals: None,Stated [Primary Care Provider] - 1-2 days Yaya Ann MD [STAFF PHYSICIAN] - 1-2 days
== END 2017-12-07 06:51 | disposition home or self-care (01) ==
LOC: EC 05:51
DX: T83.098A Other mechanical complication of other urinary catheter, initial encounter (principal); Z87.438 Personal history of other diseases of male genital organs; Z79.899 Other long term (current) drug therapy; Y84.6 Urinary catheterization as the cause of abnormal reaction of the patient, or of later complication, without mention of misadventure at the time of the procedure
CPT/HCPCS: 99283

== ENCOUNTER 2018-02-08 06:24 | Emergency (ER) | payer MEDICARE, OTHER ==
[2018-02-08 06:47] VITALS: BP 159/99; PULSE 64; RESP 18; TEMP 98.6
--- NOTE | 2018-02-08 08:29 | ED ---
General Adult HPI - General Chief complaint: Urogenital Stated complaint: Blocked Catheter Time Seen by Provider: 02/08/18 07:38 Source: patient, RN notes reviewed, old records reviewed Mode of arrival: ambulatory Limitations: no limitations - History of Present Illness Initial comments: 67-year-old male history of urinary retention with indwelling Dinero presents with decreased urine output over the past 12 hours. Patient reports some discomfort in his lower abdomen as well as pressure sensation. He's had 0 urine output since 8 PM yesterday. Denies fever or chills. Denies nausea vomiting diarrhea. Denies upper abdominal pain. - Related Data Home Medications Medication Instructions Recorded Confirmed Finasteride [Proscar] 5 mg PO DAILY 02/04/16 12/07/17 Previous Rx's Medication Instructions Recorded Tamsulosin [Flomax] 0.4 mg PO DAILY #7 cap 12/14/15 Allergies Allergy/AdvReac Type Severity Reaction Status Date / Time No Known Allergies Allergy Verified 02/08/18 06:47 Review of Systems ROS Statement: Those systems with pertinent positive or pertinent negative responses have been documented in the HPI. ROS Other: All systems not noted in ROS Statement are negative. Past Medical History Past Medical History: Prostate Disorder Additional Past Medical History / Comment(s): urine retention, BPH, dinero catheter History of Any Multi-Drug Resistant Organisms: None Reported Past Surgical History: No Surgical Hx Reported Past Psychological History: No Psychological Hx Reported Smoking Status: Never smoker Past Alcohol Use History: None Reported Past Drug Use History: None Reported General Exam Limitations: no limitations General appearance: alert, in no apparent distress Head exam: Present: atraumatic, normocephalic Eye exam: Present: normal appearance, PERRL ENT exam: Present: normal exam Neck exam: Present: normal inspection. Absent: tenderness, meningismus Respiratory exam: Present: normal lung sounds bilaterally. Absent: respiratory distress, wheezes Cardiovascular Exam: Present: regular rate, normal rhythm GI/Abdominal exam: Present: soft, tenderness (Mild suprapubic tenderness). Absent: distended Extremities exam: Present: normal inspection, normal capillary refill. Absent: pedal edema, joint swelling Neurological exam: Present: alert, oriented X3 Psychiatric exam: Present: normal affect, normal mood Skin exam: Present: warm, dry, intact Course Vital Signs 02/08/18 06:45 Temperature 98.6 F Pulse Rate 64 Respiratory 18 Rate Blood Pressure 159/99 O2 Sat by Pulse 97 Oximetry Medical Decision Making - Medical Decision Making 67-year-old male with urinary retention and obstructive Dinero catheter. Dinero catheter is changed in the emergency department. This results in complete symptomatic relief. Patient will be discharged home with outpatient urology follow-up. Disposition Clinical Impression: Malfunction of Dinero catheter Disposition: HOME SELF-CARE Condition: Good Instructions: Dinero Catheter Placement and Care (ED) Is patient prescribed a controlled substance at d/c from ED?: No Referrals: None,Stated [Primary Care Provider] - 1-2 days Jarrod Waters MD [STAFF PHYSICIAN] - 1-2 days Time of Disposition: 08:29
== END 2018-02-08 09:06 | disposition home or self-care (01) ==
LOC: EC 06:24
DX: T83.011A Breakdown (mechanical) of indwelling urethral catheter, initial encounter (principal); Z79.899 Other long term (current) drug therapy
CPT/HCPCS: 51702; 99283

== ENCOUNTER 2018-05-08 08:24 | Emergency (ER) | payer MEDICARE, OTHER ==
--- NOTE | 2018-05-08 08:57 | ED ---
General Adult HPI - General Chief complaint: Urogenital Stated complaint: blocked catheter Time Seen by Provider: 05/08/18 08:42 Source: patient Mode of arrival: ambulatory Limitations: no limitations - History of Present Illness Initial comments: Dictation was produced using [employer] dictation software. please excuse any grammatical, word or spelling errors. Chief Complaint: 67-year-old male past medical history of prostate disease presents with urinary catheter blockage. History of Present Illness: Patient is 67-year-old male. Patient has a indwelling Dinero catheter placed for urinary retention secondary to prostate disease. He states that his catheter became blocked. Last urination was 8 PM last night. Patient sees Dr. Law for outpatient management of neurologic disorder. Patient attempted to irrigate the Dinero catheter himself without much resolved. He has no other complaints at this time. Patient does report some mild suprapubic discomfort. Patient reports he did have some blood clots noted in his Dinero reservoir beginning yesterday. The ROS documented in this emergency department record has been reviewed and confirmed by me. Those systems with pertinent positive or negative responses have been documented in the HPI. All other systems are other negative and/or noncontributory. PHYSICAL EXAM: General Impression: Alert and oriented x3, not in acute distress HEENT: Normocephalic atraumatic, extra-ocular movements intact, pupils equal and reactive to light bilaterally, mucous membranes moist. Cardiovascular: Heart regular rate and rhythm, S1&S2 audible, no murmurs, rubs or gallops Chest: Lungs clear to auscultation bilaterally, no rhonchi, no wheeze, no rales Abdomen: Bowel sounds present, abdomen soft, non-tender, non-distended, no organomegaly Musculoskeletal: Pulses present and equal in all extremities, no peripheral edema Motor: no focal deficits noted Neurological: CN II-XII grossly intact, no focal motor or sensory deficits noted Skin: Intact with no visualized rashes Psych: Normal affect and mood ED course: 67-year-old male presents with a functioning indwelling Dinero catheter. Attempt was made by nursing staff to irrigate the Dinero without any resolve. The catheter was replaced with removal of approximately 500 mL of urine. Follow catheter was likely obstructed secondary to blood clot. Urine removed after Dinero replacement was yellow in color without any signs of gross hematuria.Laboratory evaluation obtained. There is greater than 182 white blood cells and greater than 182 red blood cells. Positive for nitrates. Patient to be given crustacean for antibiotics for surgeons of cystitis. Patient is otherwise well-appearing and no concerns of sepsis at this time. Patient to be discharged told to follow-up with urologist. - Related Data Home Medications Medication Instructions Recorded Confirmed Finasteride [Proscar] 5 mg PO HS 02/04/16 05/08/18 Previous Rx's Medication Instructions Recorded Sulfamethox-Tmp 800-160Mg [Bactrim 1 tab PO Q12HR 7 Days #14 tab 05/08/18 DS 800-160 mg] Allergies Allergy/AdvReac Type Severity Reaction Status Date / Time No Known Allergies Allergy Verified 05/08/18 08:45 Review of Systems ROS Statement: Those systems with pertinent positive or pertinent negative responses have been documented in the HPI. ROS Other: All systems not noted in ROS Statement are negative. Past Medical History Past Medical History: Prostate Disorder Additional Past Medical History / Comment(s): urine retention, BPH, dinero catheter History of Any Multi-Drug Resistant Organisms: None Reported Past Surgical History: No Surgical Hx Reported Past Psychological History: No Psychological Hx Reported Smoking Status: Never smoker Past Alcohol Use History: None Reported Past Drug Use History: None Reported General Exam Limitations: no limitations Course Vital Signs 05/08/18 05/08/18 08:36 09:44 Temperature 99 F 98.3 F Pulse Rate 112 H 70 Respiratory 16 18 Rate Blood Pressure 166/110 135/81 O2 Sat by Pulse 96 95 Oximetry Medical Decision Making - Lab Data Lab Results 05/08/18 Range/Units 08:55 Urine Color Yellow Urine Appearance Turbid (Clear) Urine pH 5.5 (5.0-8.0) Ur Specific [place] 1.014 (1.001-1.035) Urine Protein 1+ H (Negative) Urine Glucose (UA) Negative (Negative) Urine Ketones Negative (Negative) Urine Blood Large H (Negative) Urine Nitrite Positive (Negative) Urine Bilirubin Negative (Negative) Urine Urobilinogen <2.0 (<2.0) mg/dL Ur Leukocyte Esterase Large H (Negative) Urine RBC >182 H (0-5) /hpf Urine WBC >182 H (0-5) /hpf Urine WBC Clumps Many H (None) /hpf Ur Squamous Epith Cells 5 H (0-4) /hpf Urine Bacteria Moderate H (None) /hpf Urine Mucus Many H (None) /hpf Disposition Clinical Impression: Malfunction of Dinero catheter Disposition: HOME SELF-CARE Condition: Good Instructions (If sedation given, give patient instructions): Dinero Catheter Placement and Care (ED) Prescriptions: Sulfamethox-Tmp 800-160Mg [Bactrim DS 800-160 mg] 1 tab PO Q12HR 7 Days #14 tab Is patient prescribed a controlled substance at d/c from ED?: No Referrals: Yaya Ann MD [STAFF PHYSICIAN] - 1-2 days Time of Disposition: 10:50
[2018-05-08 09:20] LABS: Appearance,Urine Turbid (Clear); Bacteria,Urine Moderate /hpf; Bilirubin,Urine Negative (Negative); Blood,Urine Large (Negative); Color,Urine Yellow; Glucose,Urine (UA) Negative (Negative); Ketones,Urine Negative (Negative); Leukocyte Esterase,Urine Large (Negative); Mucus,Urine Many /hpf; Nitrite,Urine Positive (Negative); PH, Urine 5.5 (5.0-8.0); Protein,Urine 1+ (Negative); RBC,Urine >182 /hpf (0-5); Specific Gravity,Urine 1.014 (1.001-1.035); Squamous Epithelial Cell,Urine 5 /hpf (0-4); Urobilinogen,Urine <2.0 mg/dL (<2.0)
[2018-05-08 09:45] VITALS: BP 135/81; PULSE 70; RESP 18; TEMP 98.3
== END 2018-05-08 11:00 | disposition home or self-care (01) ==
LOC: EC 08:24
DX: T83.018A Breakdown (mechanical) of other urinary catheter, initial encounter (principal); N30.91 Cystitis, unspecified with hematuria; N40.0 Benign prostatic hyperplasia without lower urinary tract symptoms; Z79.899 Other long term (current) drug therapy
CPT/HCPCS: 51702; 81001; 87077; 87086; 87186; 99283

== ENCOUNTER 2019-02-10 00:01 | Emergency (ER) | payer MEDICARE, OTHER ==
[2019-02-10 00:05] VITALS: BP 177/101; PULSE 82; RESP 16; TEMP 98
--- NOTE | 2019-02-10 00:30 | ED ---
Male Urogenital HPI - General Chief complaint: Urogenital Stated complaint: Catheter Issues Source: patient Mode of arrival: ambulatory Limitations: no limitations - History of Present Illness Initial comments: Brandon catheter malfunction. Patient reports catheter was last exchange approximately 3 weeks ago, today the patient noted that the urine was not draining from his catheter he attempted irrigation with no success which prompted him to come the ER for evaluation. Patient states that occasionally he has difficulty similar to this when his catheter gets plugged, usually about the time that he needs his catheter exchanged. - Related Data Home Medications Medication Instructions Recorded Confirmed Finasteride [Proscar] 5 mg PO HS 02/04/16 02/10/19 Allergies Allergy/AdvReac Type Severity Reaction Status Date / Time No Known Allergies Allergy Verified 02/10/19 00:05 Review of Systems ROS Statement: Those systems with pertinent positive or pertinent negative responses have been documented in the HPI. ROS Other: All systems not noted in ROS Statement are negative. Past Medical History Past Medical History: Prostate Disorder Additional Past Medical History / Comment(s): urine retention, BPH, dinero catheter History of Any Multi-Drug Resistant Organisms: None Reported Past Surgical History: No Surgical Hx Reported Past Psychological History: No Psychological Hx Reported Smoking Status: Never smoker Past Alcohol Use History: None Reported Past Drug Use History: None Reported General Exam - General Exam Comments Initial Comments: Physical Exam GENERAL: Patient is well-developed and well-nourished. Patient is nontoxic and well-hydrated and is in no distress. HENT: Normocephalic, Atraumatic. EYES: PERRL, EOMI PULMONARY: Unlabored respirations. CARDIOVASCULAR: RRR Warm and well perfused extremities ABDOMEN: Non-distended SKIN: No rashes or bruising : Chronic indwelling Dinero catheter NEUROLOGIC: Alert and oriented Normal speech Normal gait MUSCULOSKELETAL: Moving all extremities with no apparent injury PSYCHIATRIC: No SI/HI Limitations: no limitations Course Vital Signs 02/10/19 00:02 Temperature 98.0 F Pulse Rate 82 Respiratory 16 Rate Blood Pressure 177/101 O2 Sat by Pulse 99 Oximetry Medical Decision Making - Medical Decision Making Patient was seen and evaluated history is obtained from patient decision was made to exchange dinero catheter for new Dinero catheter. New catheter was noted to drain clear yellow urine. Disposition Clinical Impression: Dinero catheter problem Disposition: HOME SELF-CARE Condition: Stable Instructions (If sedation given, give patient instructions): Dinero Catheter Placement and Care (ED) Is patient prescribed a controlled substance at d/c from ED?: No Referrals: None,Stated [Primary Care Provider] - 1-2 days
== END 2019-02-10 01:13 | disposition home or self-care (01) ==
LOC: EC 00:01
DX: T83.018A Breakdown (mechanical) of other urinary catheter, initial encounter (principal); N40.0 Benign prostatic hyperplasia without lower urinary tract symptoms; Z79.899 Other long term (current) drug therapy
CPT/HCPCS: 51702; 99283

== ENCOUNTER 2019-02-19 05:06 | Emergency (ER) | payer MEDICARE, OTHER ==
[2019-02-19 05:20] VITALS: BP 170/96; PULSE 76; RESP 20; TEMP 97.3
--- NOTE | 2019-02-19 05:29 | ED ---
Male Urogenital HPI - General Chief complaint: Urogenital Stated complaint: Blocked Cath Source: patient Mode of arrival: ambulatory Limitations: no limitations - History of Present Illness Initial comments: Jonah is a 68-year-old male with a long-term indwelling Dinero catheter presents today for evaluation of possible catheter obstruction. Patient was seen and evaluated less than 2 weeks ago had his catheter exchange student same problem. Patient states he can usually go 30 days between that her changes but recently has been having more frequent complications. Patient denies fevers chills nausea or vomiting. Does report some suprapubic discomfort feeling like he can't urinate. - Related Data Home Medications Medication Instructions Recorded Confirmed Finasteride [Proscar] 5 mg PO HS 02/04/16 02/10/19 Allergies Allergy/AdvReac Type Severity Reaction Status Date / Time No Known Allergies Allergy Verified 02/19/19 05:20 Review of Systems ROS Statement: Those systems with pertinent positive or pertinent negative responses have been documented in the HPI. ROS Other: All systems not noted in ROS Statement are negative. Past Medical History Past Medical History: Prostate Disorder Additional Past Medical History / Comment(s): urine retention, BPH, dinero catheter History of Any Multi-Drug Resistant Organisms: None Reported Past Surgical History: No Surgical Hx Reported Past Psychological History: No Psychological Hx Reported Smoking Status: Never smoker Past Alcohol Use History: None Reported Past Drug Use History: None Reported General Exam - General Exam Comments Initial Comments: Physical Exam GENERAL: Patient is well-developed and well-nourished. Patient is nontoxic and well-hydrated and is in no distress. HENT: Normocephalic, Atraumatic. EYES: PERRL, EOMI PULMONARY: Unlabored respirations. CARDIOVASCULAR: RRR Warm and well perfused extremities ABDOMEN: Non-distended SKIN: No rashes or bruising : Indwelling Dinero catheter, no drainage no output NEUROLOGIC: Alert and oriented Normal speech Normal gait MUSCULOSKELETAL: Moving all extremities with no apparent injury PSYCHIATRIC: No SI/HI Limitations: no limitations Course Vital Signs 02/19/19 05:16 Temperature 97.3 F L Pulse Rate 76 Respiratory 20 Rate Blood Pressure 170/96 O2 Sat by Pulse 98 Oximetry Medical Decision Making - Medical Decision Making Patient was seen and evaluated history was obtained from the patient Dinero catheter was exchanged patient had clear urine drainage. Resolution of his lower abdominal discomfort. Patient discharged home in stable condition and advised to contact his urologist for follow-up. Disposition Clinical Impression: Dinero catheter problem Disposition: HOME SELF-CARE Condition: Stable Instructions (If sedation given, give patient instructions): Dinero Catheter Placement and Care (ED) Is patient prescribed a controlled substance at d/c from ED?: No Referrals: None,Stated [Primary Care Provider] - 1-2 days
== END 2019-02-19 06:11 | disposition home or self-care (01) ==
LOC: EC 05:06
DX: T83.098A Other mechanical complication of other urinary catheter, initial encounter (principal); Z79.899 Other long term (current) drug therapy
CPT/HCPCS: 51702; 99282

== ENCOUNTER 2019-04-24 06:56 | Emergency (ER) | payer MEDICARE, OTHER ==
[2019-04-24 07:04] VITALS: BP 163/94; PULSE 67; RESP 18; TEMP 97.6
[2019-04-24 07:47] LABS: Appearance,Urine Cloudy (Clear); Bacteria,Urine Many /hpf; Bilirubin,Urine Negative (Negative); Blood,Urine Large (Negative); Color,Urine Yellow; Glucose,Urine (UA) Negative (Negative); Ketones,Urine Negative (Negative); Leukocyte Esterase,Urine Large (Negative); Mucus,Urine Rare /hpf; Nitrite,Urine Positive (Negative); PH, Urine 5.5 (5.0-8.0); Protein,Urine Trace (Negative); RBC,Urine >182 /hpf (0-5); Urobilinogen,Urine <2.0 mg/dL (<2.0); WBC,Urine 42 /hpf (0-5)
--- NOTE | 2019-04-24 07:53 | ED ---
Male Urogenital HPI - General Chief complaint: Urogenital Stated complaint: Blocked Cath Time Seen by Provider: 04/24/19 07:04 Source: patient, RN notes reviewed Mode of arrival: ambulatory - History of Present Illness Initial comments: 68-year-old male presents emergency Department chief complaint of the catheter blocked. Patient has had catheter for last couple years secondary to urinary retention from BPH. Patient states that it has been in for the last 3-4 weeks and states he's strange. Patient reports no fevers chills he does feel slightly distended and having mild lower abdominal pain. Denies any flank pain no chest pain or shortness breath denies any other complaints. - Related Data Home Medications Medication Instructions Recorded Confirmed Finasteride [Proscar] 5 mg PO HS 02/04/16 04/24/19 Previous Rx's Medication Instructions Recorded Sulfamethox-Tmp 800-160Mg [Bactrim 1 each PO Q12HR #14 tab 04/24/19 Ds] Allergies Allergy/AdvReac Type Severity Reaction Status Date / Time No Known Allergies Allergy Verified 04/24/19 07:04 Review of Systems ROS Statement: Those systems with pertinent positive or pertinent negative responses have been documented in the HPI. ROS Other: All systems not noted in ROS Statement are negative. Past Medical History Past Medical History: Prostate Disorder Additional Past Medical History / Comment(s): urine retention, BPH, dinero catheter History of Any Multi-Drug Resistant Organisms: None Reported Past Surgical History: No Surgical Hx Reported Past Psychological History: No Psychological Hx Reported Smoking Status: Never smoker Past Alcohol Use History: None Reported Past Drug Use History: None Reported General Exam General appearance: alert, in no apparent distress Head exam: Present: atraumatic, normocephalic, normal inspection Eye exam: Present: normal appearance, PERRL, EOMI. Absent: scleral icterus, conjunctival injection, periorbital swelling Respiratory exam: Present: normal lung sounds bilaterally. Absent: respiratory distress, wheezes, rales, rhonchi, stridor Cardiovascular Exam: Present: regular rate, normal rhythm, normal heart sounds. Absent: systolic murmur, diastolic murmur, rubs, gallop, clicks GI/Abdominal exam: Present: soft, distended (Minimal), tenderness (Minimal suprapubic), normal bowel sounds. Absent: guarding, rebound, rigid Back exam: Absent: CVA tenderness (R), CVA tenderness (L) Course Vital Signs 04/24/19 07:01 Temperature 97.6 F Pulse Rate 67 Respiratory 18 Rate Blood Pressure 163/94 O2 Sat by Pulse 100 Oximetry Medical Decision Making - Medical Decision Making Dinero catheter was exchanged with no complications. Patient does have a moderate amount of WBCs in his urinalysis and will be started on antibiotics pending culture. - Lab Data Lab Results 04/24/19 Range/Units 07:25 Urine Color Yellow Urine Appearance Cloudy (Clear) Urine pH 5.5 (5.0-8.0) Ur Specific [place] 1.010 (1.001-1.035) Urine Protein Trace H (Negative) Urine Glucose (UA) Negative (Negative) Urine Ketones Negative (Negative) Urine Blood Large H (Negative) Urine Nitrite Positive (Negative) Urine Bilirubin Negative (Negative) Urine Urobilinogen <2.0 (<2.0) mg/dL Ur Leukocyte Esterase Large H (Negative) Urine RBC >182 H (0-5) /hpf Urine WBC 42 H (0-5) /hpf Urine Bacteria Many H (None) /hpf Urine Mucus Rare H (None) /hpf Disposition Clinical Impression: Malfunction of Dinero catheter, UTI (urinary tract infection) Disposition: HOME SELF-CARE Condition: Stable Additional Instructions: Please return to the Emergency Department if symptoms worsen or any other concerns. Prescriptions: Sulfamethox-Tmp 800-160Mg [Bactrim Ds] 1 each PO Q12HR #14 tab Is patient prescribed a controlled substance at d/c from ED?: No Referrals: None,Stated [Primary Care Provider] - 1-2 days Time of Disposition: 07:53
== END 2019-04-24 08:23 | disposition home or self-care (01) ==
LOC: EC 06:56
DX: T83.018A Breakdown (mechanical) of other urinary catheter, initial encounter (principal); T83.518A Infection and inflammatory reaction due to other urinary catheter, initial encounter; N39.0 Urinary tract infection, site not specified; N40.1 Benign prostatic hyperplasia with lower urinary tract symptoms; R33.8 Other retention of urine
CPT/HCPCS: 51702; 81001; 87077; 87086; 87186; 99283

== ENCOUNTER 2021-05-27 21:51 | Emergency (ER) | payer MEDICARE, OTHER ==
[2021-05-27 22:03] VITALS: BP 188/98; PULSE 77; RESP 18; TEMP 97
--- NOTE | 2021-05-27 22:18 | ED ---
Male Urogenital HPI - General Chief complaint: Urogenital Stated complaint: Cath issues Time Seen by Provider: 05/27/21 22:05 Source: patient, RN notes reviewed Mode of arrival: ambulatory Limitations: no limitations - History of Present Illness Initial comments: This is a pleasant 70-year-old male with history of BPH who presents to emergency department for Dinero catheter being blocked. Patient has a chronic Dinero catheter and states he was due to have it changed this week. Patient states it stopped operating about 2 hours ago. He is describes suprapubic pressure, otherwise no pain. No fever. No chills. No headache, no fever or chills, no changes in vision or hearing, no sore throat or difficulty with speech, no neck pain, no chest pain or shortness of breath, no abdominal pain, no nausea or vomiting, no changes bowel movements, no numbness or tingling, no extremity pain, no skin rashes or lesions. - Related Data Home Medications Medication Instructions Recorded Confirmed Finasteride [Proscar] 5 mg PO HS 02/04/16 04/24/19 Previous Rx's Medication Instructions Recorded Sulfamethox-Tmp 800-160Mg [Bactrim 1 each PO Q12HR #14 tab 04/24/19 Ds] Allergies Allergy/AdvReac Type Severity Reaction Status Date / Time No Known Allergies Allergy Verified 05/27/21 22:03 Review of Systems ROS Statement: Those systems with pertinent positive or pertinent negative responses have been documented in the HPI. ROS Other: All systems not noted in ROS Statement are negative. Past Medical History Past Medical History: Prostate Disorder Additional Past Medical History / Comment(s): urine retention, BPH, dinero catheter History of Any Multi-Drug Resistant Organisms: Other MDRO Past Surgical History: No Surgical Hx Reported Past Psychological History: No Psychological Hx Reported Smoking Status: Never smoker Past Alcohol Use History: None Reported Past Drug Use History: None Reported General Exam Limitations: no limitations General appearance: alert, in no apparent distress Head exam: Present: atraumatic, normocephalic, normal inspection Eye exam: Present: normal appearance, PERRL, EOMI. Absent: scleral icterus, conjunctival injection, periorbital swelling ENT exam: Present: normal exam, mucous membranes moist Neck exam: Present: normal inspection, full ROM. Absent: tenderness, meningismus, lymphadenopathy Respiratory exam: Present: normal lung sounds bilaterally. Absent: respiratory distress, wheezes, rales, rhonchi, stridor Cardiovascular Exam: Present: regular rate, normal rhythm, normal heart sounds. Absent: systolic murmur, diastolic murmur, rubs, gallop, clicks GI/Abdominal exam: Present: soft, normal bowel sounds. Absent: distended, tenderness, guarding, rebound, rigid Extremities exam: Present: normal inspection, full ROM, normal capillary refill. Absent: tenderness, pedal edema, joint swelling, calf tenderness Back exam: Present: normal inspection Neurological exam: Present: alert, oriented X3, CN II-XII intact Psychiatric exam: Present: normal affect, normal mood Skin exam: Present: warm, dry, intact, normal color. Absent: rash Course Vital Signs 05/27/21 22:00 Temperature 97 F L Pulse Rate 77 Respiratory 18 Rate Blood Pressure 188/98 O2 Sat by Pulse 98 Oximetry Medical Decision Making - Medical Decision Making Dinero catheter replaced. Patient had 2 small blood clots. Patient then had good return and good function. Patient did not appear to be systemically ill. He is afebrile. We'll have patient follow-up with urologist. Patient was told to return to the ER for any signs or symptoms worsen. Told to return immediately if any other problems arise. All questions answered. Treatment plan discussed. Patient in agreement Every effort has been made to ensure accuracy of this dictation. However, due to the limitations of electronic medical records and dictation devices, errors in charting still occur. Disposition Clinical Impression: Problem with Dinero catheter, Acute on chronic urinary retention Disposition: HOME SELF-CARE Condition: Good Instructions (If sedation given, give patient instructions): Dinero Catheter Placement and Care (ED) Additional Instructions: Follow-up with your urologist. Call tomorrow morning for follow-up appointment. Follow-up with your regular physician as directed. Return to the ER immediately if any symptoms worsen, new symptoms arise, or any other problems develop. Is patient prescribed a controlled substance at d/c from ED?: No Referrals: None,Stated [Primary Care Provider] - 1-2 days Time of Disposition: 22:18
== END 2021-05-27 22:47 | disposition home or self-care (01) ==
LOC: EC 21:51
DX: T83.091A Other mechanical complication of indwelling urethral catheter, initial encounter (principal); R33.9 Retention of urine, unspecified; X58.XXXA Exposure to other specified factors, initial encounter
CPT/HCPCS: 51702; 99283

== ENCOUNTER 2022-01-23 21:24 | Emergency (ER) | payer MEDICARE, OTHER ==
[2022-01-23 22:55] VITALS: TEMP 98.1
--- NOTE | 2022-01-24 00:22 | ED ---
Male Urogenital HPI - General Chief complaint: Urogenital Stated complaint: Blocked Cath Time Seen by Provider: 01/24/22 00:09 Source: patient, RN notes reviewed Mode of arrival: ambulatory Limitations: no limitations - History of Present Illness Initial comments: This is a 71-year-old male who presents to the emergency department for a urinary catheter blockage. States that since about 4pm today, he has been unable to pass urine. He tried flushing the catheter with no improvement. He was evaluated here in May of this year for the same problem and was found to have a couple of blood clots in the catheter. He has had a Dinero catheter for many years due to BPH and has it changed every 4 weeks. He is scheduled to have this changed by Dr. Cummings's office in 1 week. Denies any pain, fevers, or chills. Denies any fevers, chills, sore throat, cough, dyspnea, chest pain, palpitations, abdominal pain, nausea, vomiting, diarrhea, back pain, or headaches. MD Complaint: other (Dinero catheter blockage) - Related Data Home Medications Medication Instructions Recorded Confirmed Finasteride [Proscar] 5 mg PO HS 02/04/16 04/24/19 Previous Rx's Medication Instructions Recorded Sulfamethox-Tmp 800-160Mg [Bactrim 1 each PO Q12HR #14 tab 04/24/19 Ds] cefUROXime axetiL [Ceftin] 500 mg PO BID 10 Days #20 tab 01/24/22 Allergies Allergy/AdvReac Type Severity Reaction Status Date / Time No Known Allergies Allergy Verified 01/23/22 22:55 Review of Systems ROS Statement: Those systems with pertinent positive or pertinent negative responses have been documented in the HPI. ROS Other: All systems not noted in ROS Statement are negative. Past Medical History Past Medical History: Prostate Disorder Additional Past Medical History / Comment(s): urine retention, BPH, dinero catheter History of Any Multi-Drug Resistant Organisms: Other MDRO Past Surgical History: No Surgical Hx Reported Past Psychological History: No Psychological Hx Reported Smoking Status: Never smoker Past Alcohol Use History: None Reported Past Drug Use History: None Reported General Exam Limitations: no limitations General appearance: alert, in no apparent distress Head exam: Present: atraumatic, normocephalic, normal inspection Respiratory exam: Present: normal lung sounds bilaterally. Absent: respiratory distress, wheezes, rales, rhonchi, stridor Cardiovascular Exam: Present: regular rate, normal rhythm, normal heart sounds. Absent: systolic murmur, diastolic murmur, rubs, gallop, clicks exam: Present: normal inspection. Absent: urethral discharge External exam: Absent: erythema, swelling Neurological exam: Present: alert, oriented X3, CN II-XII intact Psychiatric exam: Present: normal affect, normal mood Skin exam: Present: warm, dry, intact, normal color. Absent: rash Course Vital Signs 01/23/22 01/24/22 22:53 00:41 Temperature 98.1 F Pulse Rate 83 77 Respiratory 20 15 Rate Blood Pressure 197/97 145/85 O2 Sat by Pulse 98 97 Oximetry Medical Decision Making - Medical Decision Making This is a 71-year-old male who presents to the emergency department for a urinary catheter problem. His catheter was removed and replaced without difficulty. It was flushed and found to be patent and working appropriately. Urinalysis positive for UTI. Rx for Cefuroxime provided. He will follow up with Dr. Cummings as scheduled in 1 week. Return precautions reviewed in depth, the patient is instructed to return to the emergency department with any new, worsening, or concerning symptoms. Patient verbalized understanding. This case was discussed in detail with the attending ED physician. Presentation, findings, and treatment plan discussed in detail as well. - Lab Data Lab Results 01/24/22 Range/Units 00:25 Urine Color Light Red Urine Appearance Cloudy (Clear) Urine pH 6.5 (5.0-8.0) Ur Specific [place] 1.017 (1.001-1.035) Urine Protein 1+ H (Negative) Urine Glucose (UA) Negative (Negative) Urine Ketones Negative (Negative) Urine Blood Large H (Negative) Urine Nitrite Positive (Negative) Urine Bilirubin Negative (Negative) Urine Urobilinogen <2.0 (<2.0) mg/dL Ur Leukocyte Esterase Large H (Negative) Urine RBC >182 H (0-5) /hpf Urine WBC >182 H (0-5) /hpf Urine WBC Clumps Many H (None) /hpf Urine Bacteria Occasional H (None) /hpf Urine Mucus Rare H (None) /hpf Disposition Clinical Impression: Dinero catheter problem Disposition: HOME SELF-CARE Instructions (If sedation given, give patient instructions): Dinero Catheter Placement and Care (ED) Additional Instructions: Return to the emergency department with any new, worsening, or concerning symptoms. Follow-up with Dr. Cummings as scheduled. Follow up with your primary care provider in 1-2 days. Prescriptions: cefUROXime axetiL [Ceftin] 500 mg PO BID 10 Days #20 tab Is patient prescribed a controlled substance at d/c from ED?: No Referrals: None,Stated [Primary Care Provider] - 1-2 days
[2022-01-24 00:42] VITALS: BP 145/85; PULSE 77; RESP 15
[2022-01-24 00:52] LABS: Appearance,Urine Cloudy (Clear); Bacteria,Urine Occasional /hpf; Bilirubin,Urine Negative (Negative); Blood,Urine Large (Negative); Color,Urine Light Red; Glucose,Urine (UA) Negative (Negative); Ketones,Urine Negative (Negative); Leukocyte Esterase,Urine Large (Negative); Mucus,Urine Rare /hpf; Nitrite,Urine Positive (Negative); PH, Urine 6.5 (5.0-8.0); Protein,Urine 1+ (Negative); RBC,Urine >182 /hpf (0-5); Specific Gravity,Urine 1.017 (1.001-1.035); Urobilinogen,Urine <2.0 mg/dL (<2.0); WBC,Urine >182 /hpf (0-5)
== END 2022-01-24 00:42 | disposition home or self-care (01) ==
LOC: EC 21:24
DX: T83.091A Other mechanical complication of indwelling urethral catheter, initial encounter (principal)
CPT/HCPCS: 81001; 87086; 99283

== ENCOUNTER 2024-01-30 21:44 | Emergency (ER) | payer MEDICARE, OTHER ==
[2024-01-30 22:03] VITALS: TEMP 98.3
--- NOTE | 2024-01-30 22:48 | ED ---
General Adult HPI - General Chief complaint: Urogenital Stated complaint: Cath Blocked Time Seen by Provider: 01/30/24 22:02 Source: patient Mode of arrival: ambulatory Limitations: no limitations - History of Present Illness Initial comments: 73-year-old male presenting chief complaint of obstructed Dinero catheter. Patient states he last notices catheter draining this afternoon. Tried to flush it at home but this did not work. He is not experiencing any abdominal pain, fever, back pain, vomiting. Patient has had a Dinero catheter in place for year s for BPH. He has a replaced monthly at his urologist office. - Related Data Home Medications Medication Instructions Recorded Confirmed Finasteride [Proscar] 5 mg PO HS 02/04/16 04/24/19 Previous Rx's Medication Instructions Recorded Sulfamethox-Tmp 800-160Mg [Bactrim 1 each PO Q12HR #14 tab 04/24/19 Ds] cefuroxime axetiL [Ceftin] 500 mg PO BID 10 Days #20 tab 01/24/22 Cephalexin [Keflex] 500 mg PO Q6HR 7 Days #28 cap 01/30/24 Allergies Allergy/AdvReac Type Severity Reaction Status Date / Time No Known Allergies Allergy Verified 01/30/24 22:02 Review of Systems ROS Statement: Those systems with pertinent positive or pertinent negative responses have been documented in the HPI. ROS Other: All systems not noted in ROS Statement are negative. Past Medical History Past Medical History: Prostate Disorder Additional Past Medical History / Comment(s): urine retention, BPH, dinero catheter History of Any Multi-Drug Resistant Organisms: Other MDRO Past Surgical History: No Surgical Hx Reported Past Psychological History: No Psychological Hx Reported Smoking Status: Never smoker Past Alcohol Use History: None Reported Past Drug Use History: None Reported General Exam Limitations: no limitations General appearance: alert, in no apparent distress Head exam: Present: atraumatic, normocephalic, normal inspection Eye exam: Present: normal appearance Neck exam: Present: normal inspection. Absent: meningismus Respiratory exam: Absent: respiratory distress Cardiovascular Exam: Present: regular rate Neurological exam: Present: alert, oriented X3 Psychiatric exam: Present: normal affect, normal mood Skin exam: Present: warm, dry Course Vital Signs 01/30/24 01/30/24 22:00 22:58 Temperature 98.3 F Pulse Rate 94 98 Respiratory 20 16 Rate Blood Pressure 158/100 O2 Sat by Pulse 97 96 Oximetry Medical Decision Making - Medical Decision Making Was pt. sent in by a medical professional or institution (, [facility], [facility], urgent care, hospital, or fpc...) When possible be specific @ -No Did you speak to anyone other than the patient for history (EMS, parent, family, police, friend...)? What history was obtained from this source @ -No Did you review nursing and triage notes (agree or disagree)? Why? @ -I reviewed and agree with nursing and triage notes Were old charts reviewed (outside hosp., previous admission, EMS record, old EKG, old radiological studies, urgent care reports/EKG's, fpc records)? Report findings @ -No old charts were reviewed Differential Diagnosis (chest pain, altered mental status, abdominal pain women, abdominal pain men, vaginal bleeding, weakness, fever, dyspnea, syncope, headache, dizziness, GI bleed, back pain, seizure, CVA, palpatations, mental health, musculoskeletal)? @ -Differential includes blood clot, stone, equipment malfunction, this is not an all-inclusive list EKG interpreted by me (3pts min.). @ -As above X-rays interpreted by me (1pt min.). @ -None done CT interpreted by me (1pt min.). @ -None done U/S interpreted by me (1pt. min.). @ -None done What testing was considered but not performed or refused? (CT, X-rays, U/S, labs)? Why? @ -None What meds were considered but not given or refused? Why? @ -None Did you discuss the management of the patient with other professionals (professionals i.e. [facility], PLUG [employer]KER, lab, RT, psych nurse, outreach and education social worker, fishery division chief, teacher, drug abuse resistance education officer, nurse outreach case manager)? Give summary @ -No Was smoking cessation discussed for >3mins.? @ -No Was critical care preformed (if so, how long)? @ -No Were there social determinants of health that impacted care today? How? (Homelessness, low income, unemployed, alcoholism, drug addiction, transportation, low edu. Level, literacy, decrease access to med. care, fpc, rehab)? @ -No Was there de-escalation of care discussed even if they declined (Discuss DNR or withdrawal of care, Hospice)? DNR status @ -No What co-morbidities impacted this encounter? (DM, HTN, Smoking, COPD, CAD, Cancer, CVA, ARF, Chemo, Hep., AIDS, mental health diagnosis, sleep apnea, morbid obesity)? @ -None Was patient admitted / discharged? Hospital course, mention meds given and route, prescriptions, significant lab abnormalities, going to OR and other pertinent info. @ -73-year-old male presenting with chief complaint of "my Dinero will drain". Dinero catheter was replaced in the ER, there was a blood clot in the tubing blocking outflow. Patient is now having outflow and will follow-up with his urologist. UA shows concerns for infection, will treat with Keflex and urine sent for culture. Follow-up with PCP. Report back to ER with any new or worsening symptoms. Discussed return parameters and answered all questions. Patient conveyed verbal understanding and agreed to the plan. My attending is Dr. Snyder Undiagnosed new problem with uncertain prognosis? @ -No Drug Therapy requiring intensive monitoring for toxicity (Heparin, Nitro, Insulin, Cardizem)? @ -No Were any procedures done? @ -No Diagnosis/symptom? @ -Dinero catheter replacement, UTI Acute, or Chronic, or Acute on Chronic? @ -Acute Uncomplicated (without systemic symptoms) or Complicated (systemic symptoms)? @ -Uncomplicated Side effects of treatment? @ -No Exacerbation, Progression, or Severe Exacerbation? @ -No Poses a threat to life or bodily function? How? (Chest pain, USA, MS, pneumonia, PE, COPD, DKA, ARF, appy, cholecystitis, CVA, Diverticulitis, Homicidal, Suicidal, threat to staff... and all critical care pts) @ -Threat with any infection, however there is low likelihood at this time - Lab Data Lab Results 01/30/24 Range/Units 22:30 Urine Color Yellow Urine Appearance Turbid (Clear) Urine pH 6.5 (5.0-8.0) Ur Specific [place] 1.019 (1.001-1.035) Urine Protein 2+ H (Negative) Urine Glucose (UA) Negative (Negative) Urine Ketones Negative (Negative) Urine Blood Large H (Negative) Urine Nitrite Negative (Negative) Urine Bilirubin Negative (Negative) Urine Urobilinogen <2.0 (<2.0) mg/dL Ur Leukocyte Esterase Large H (Negative) Urine RBC >182 H (0-5) /hpf Urine WBC >182 H (0-5) /hpf Urine WBC Clumps Moderate H (None) /hpf Calcium Oxalate Crystal Moderate H (None) /hpf Amorphous Sediment Rare H (None) /hpf Urine Bacteria Many H (None) /hpf Urine Yeast (Budding) Many H (None) /hpf Disposition Clinical Impression: Encounter for Dinero catheter replacement, Urinary tract infection Disposition: HOME SELF-CARE Condition: Good Instructions (If sedation given, give patient instructions): Urinary Tract Infection in Men (ED) Additional Instructions: Follow-up with urologist. Report back to ER with any new or worsening symptoms. Prescriptions: Cephalexin [Keflex] 500 mg PO Q6HR 7 Days #28 cap Is patient prescribed a controlled substance at d/c from ED?: No Referrals: Keith Cummings MD [Primary Care Provider] - 1-2 days Time of Disposition: 23:20
[2024-01-30 22:59] VITALS: BP 158/100; PULSE 98; RESP 16
[2024-01-30 23:11] LABS: Amorphous Sediment,Urine Rare /hpf; Appearance,Urine Turbid (Clear); Bacteria,Urine Many /hpf; Bilirubin,Urine Negative (Negative); Blood,Urine Large (Negative); Budding Yeast,Urine Many /hpf; Calcium Oxalate Crystals,Urine Moderate /hpf; Color,Urine Yellow; Glucose,Urine (UA) Negative (Negative); Ketones,Urine Negative (Negative); Leukocyte Esterase,Urine Large (Negative); Nitrite,Urine Negative (Negative); PH, Urine 6.5 (5.0-8.0); Protein,Urine 2+ (Negative); RBC,Urine >182 /hpf (0-5); Specific Gravity,Urine 1.019 (1.001-1.035); Urobilinogen,Urine <2.0 mg/dL (<2.0); WBC,Urine >182 /hpf (0-5)
[2024-01-30] MEDS: CEPHALEXIN 500 MG CAP PO STA (23:26)
== END 2024-01-31 00:21 | disposition home or self-care (01) ==
LOC: EC 21:44
DX: Z46.6 Encounter for fitting and adjustment of urinary device (principal); N39.0 Urinary tract infection, site not specified
CPT/HCPCS: 51702; 81001; 87086; 99283

== ENCOUNTER 2024-02-24 15:39 | Emergency (ER) | payer MEDICARE, OTHER ==
--- NOTE | 2024-02-24 15:48 | ED ---
Abdominal Pain HPI - General Source: patient, RN notes reviewed Mode of arrival: ambulatory Limitations: no limitations <Marilin Alfonso - Last Filed: 02/24/24 15:47> - General Source: patient, RN notes reviewed <Silvia Walters - Last Filed: 02/24/24 18:29> - General Chief Complaint: Abdominal Pain Stated Complaint: constipation Time Seen by Provider: 02/24/24 15:47 - History of Present Illness Initial Comments: Quick note: 73-year-old male presented to ER for evaluation of constipation. Patient states he has not had a bowel movement in the past 3 days. This is extremely abnormal. He has tried [id number] laxative without relief. He denies any abdominal pain, nausea, vomiting or fevers. (Marilin Alfonso) 73-year-old male presenting to the ER for evaluation of constipation. States he has not had a bowel movement in 3 days. States he is passing flatus. He has tried [id number] laxatives without relief. Denies abdominal pain, nausea, vomiting, fever. Denies history of abdominal surgeries. (Silvia Walters) - Related Data Home Medications Medication Instructions Recorded Confirmed Finasteride [Proscar] 5 mg PO HS 02/04/16 04/24/19 Previous Rx's Medication Instructions Recorded Sulfamethox-Tmp 800-160Mg [Bactrim 1 each PO Q12HR #14 tab 04/24/19 Ds] cefuroxime axetiL [Ceftin] 500 mg PO BID 10 Days #20 tab 01/24/22 Cephalexin [Keflex] 500 mg PO Q6HR 7 Days #28 cap 01/30/24 Allergies Allergy/AdvReac Type Severity Reaction Status Date / Time No Known Allergies Allergy Verified 02/24/24 15:45 Review of Systems ROS Other: All systems not noted in ROS Statement are negative. <Marilin Alfonso - Last Filed: 02/24/24 15:47> ROS Other: All systems not noted in ROS Statement are negative. <Silvia Walters - Last Filed: 02/24/24 18:29> ROS Statement: Those systems with pertinent positive or pertinent negative responses have been documented in the HPI. Past Medical History Past Medical History: Prostate Disorder Additional Past Medical History / Comment(s): urine retention, BPH, dinero catheter History of Any Multi-Drug Resistant Organisms: Other MDRO Past Surgical History: No Surgical Hx Reported Past Psychological History: No Psychological Hx Reported Smoking Status: Never smoker Past Alcohol Use History: None Reported Past Drug Use History: None Reported <Marilin Alfonso - Last Filed: 02/24/24 15:47> General Exam Limitations: no limitations <Marilin Alfonso - Last Filed: 02/24/24 15:47> General appearance: alert, in no apparent distress Eye exam: Present: normal appearance. Absent: scleral icterus, conjunctival injection, periorbital swelling ENT exam: Present: normal exam, mucous membranes moist GI/Abdominal exam: Present: soft, normal bowel sounds. Absent: distended, tenderness, guarding, rebound, rigid Neurological exam: Present: alert, oriented X3 Psychiatric exam: Present: normal affect, normal mood Skin exam: Present: warm, dry, intact, normal color. Absent: rash <Silvia Walters - Last Filed: 02/24/24 18:29> - General Exam Comments Initial Comments: Visual Physical Exam Vital signs reviewed General: Well-appearing, nontoxic, no acute distress. Head: Normocephalic, atraumatic Eyes: PERRLA, EOMI ENT: Airway patent Chest: Nonlabored breathing Skin: No visual rash, normal skin tone Neuro: Alert and oriented 3 Musculoskeletal: No gross abnormalities (Marilin Alfonso) Course Vital Signs 02/24/24 02/24/24 15:42 18:10 Temperature 97.4 F L 98 F Pulse Rate 89 61 Respiratory 18 16 Rate Blood Pressure 180/103 139/83 O2 Sat by Pulse 97 98 Oximetry Medical Decision Making <Marilin Alfonso - Last Filed: 02/24/24 15:47> <Silvia Walters - Last Filed: 02/24/24 18:29> - Medical Decision Making I performed the quick note portion of this chart. Electronically signed by Marilin Alfonso PA-C (Marilin Alfonso) Was pt. sent in by a medical professional or institution ([facility], [facility], urgent care, hospital, or jail...) When possible be specific @ -No Did you speak to anyone other than the patient for history (EMS, parent, family, police, friend...)? What history was obtained from this source @ -No Did you review nursing and triage notes (agree or disagree)? Why? @ -I reviewed and agree with nursing and triage notes Were old charts reviewed (outside hosp., previous admission, EMS record, old EKG , old radiological studies, urgent care reports/EKG's, jail records)? Report findings @ -No old charts were reviewed Differential Diagnosis (chest pain, altered mental status, abdominal pain women, abdominal pain men, vaginal bleeding, weakness, fever, dyspnea, syncope, headache, dizziness, GI bleed, back pain, seizure, CVA, palpatations, mental health, musculoskeletal)? @ -Not applicable EKG interpreted by me (3pts min.). @ -None X-rays interpreted by me (1pt min.). @ -KUB reveals multiple calcification densities projecting over the pelvis unclear etiology, nonspecific bowel gas pattern without radio graphic evidence for acute process, moderate stool in right colon CT interpreted by me (1pt min.). @ -None done U/S interpreted by me (1pt. min.). @ -None done What testing was considered but not performed or refused? (CT, X-rays, U/S, labs)? Why? @ -None What meds were considered but not given or refused? Why? @ -None Did you discuss the management of the patient with other professionals (professionals i.e. , PA, LINES TENDER, lab, RT, psych nurse, perinatal social worker, staff appraiser, teacher, flight deck officer, human services case manager)? Give summary @ -No Was smoking cessation discussed for >3mins.? @ -No Was critical care preformed (if so, how long)? @ -No Were there social determinants of health that impacted care today? How? (Homelessness, low income, unemployed, alcoholism, drug addiction, transport ation, low edu. Level, literacy, decrease access to med. care, [facility], rehab)? @ -No Was there de-escalation of care discussed even if they declined (Discuss DNR or withdrawal of care, Hospice)? DNR status @ -No What co-morbidities impacted this encounter? (DM, HTN, Smoking, COPD, CAD, Cancer, CVA, ARF, Chemo, Hep., AIDS, mental health diagnosis, sleep apnea, morbid obesity)? @ -None Was patient admitted / discharged? Hospital course, mention meds given and route, prescriptions, significant lab abnormalities, going to OR and other pertinent info. @ -Discharge. This is a 73-year-old male presenting for constipation x 3 days. No abdominal pain. Denies rectal pain. Patient is hypertensive, otherwise vital signs are within acceptable limits. Abdomen is soft and nontender. KUB reveals multiple calcification densities projecting over the pelvis unclear etiology, nonspecific bowel gas pattern without radiographic evidence for acute process, moderate stool in right colon. Discussed results with patient. Patient is normotensive upon repeat evaluation. Patient was discharged with magnesium citrate. We discussed importance of following up with PCP as patient may need colonoscopy. Appropriate return precautions discussed. Case was discussed with my ED attending Dr. Marshall. Undiagnosed new problem with uncertain prognosis? @ -No Drug Therapy requiring intensive monitoring for toxicity (Heparin, Nitro, Insulin, Cardizem)? @ -No Were any procedures done? @ -No Diagnosis/symptom? @ -Constipation Acute, or Chronic, or Acute on Chronic? @ -Acute Uncomplicated (without systemic symptoms) or Complicated (systemic symptoms)? @ -Uncomplicated Side effects of treatment? @ -No Exacerbation, Progression, or Severe Exacerbation? @ -No Poses a threat to life or bodily function? How? (Chest pain, USA, ID, pneumonia, PE, COPD, DKA, ARF, appy, cholecystitis, CVA, Diverticulitis, Homicidal, Suicidal, threat to staff... and all critical care pts) @ -No (Silvia Walters) Disposition <Marilin Alfonso - Last Filed: 02/24/24 15:47> Is patient prescribed a controlled substance at d/c from ED?: No Time of Disposition: 17:53 <Silvia Walters - Last Filed: 02/24/24 18:29> Clinical Impression: Constipation Disposition: HOME SELF-CARE Condition: Stable Instructions (If sedation given, give patient instructions): Constipation (ED) Additional Instructions: Take half the bottle of magnesium citrate when you get home. If you do not have a bowel movement by tomorrow morning, take the other half of the bottle. Follow-up with your PCP as discussed. Please return to the Emergency Department if symptoms worsen or any other concerns. Referrals: None,Stated [Primary Care Provider] - 1-2 days Forms: Area PCPs
--- NOTE | 2024-02-24 17:18 | XR ---
EXAMINATION TYPE: XR KUB DATE OF EXAM: 02/24/2024 5:07 PM COMPARISON: None CLINICAL INDICATION: Male, 73 years old with history of constipation; [facility] TECHNIQUE: One radiographic view of the abdomen was obtained. FINDINGS: Moderate amount of stool in the right colon. The bowel gas pattern is nonspecific without d ilated loops of small or large bowel. . Fecal material and gas are demonstrated throughout the colon and rectum. There is no evidence for organomegaly or pneumoperitoneum. The osseous structures are in tact. No abnormal calcifications are present. Calcifications are seen bilaterally projecting over th e pelvis. IMPRESSION: 1. Multiple calcification densities projecting over the pelvis unclear etiology. Consider further ev aluation with CT imaging. Findings could represent ingested contents such as medicine versus constipa tion medicine versus renal stones in a distended urinary bladder versus other. 2. Nonspecific bowel gas pattern without radiographic evidence for acute process. [facility], , 02/24/2024 5:16 PM
[2024-02-24 18:15] VITALS: RESP 16
[2024-02-24] MEDS: MAGNESIUM CITRATE 296 ML BOTTLE PO ONE (18:32)
[2024-02-24 18:38] VITALS: BP 165/89; PULSE 86; TEMP 98.1
== END 2024-02-24 18:40 | disposition home or self-care (01) ==
LOC: EC 15:39
DX: K59.00 Constipation, unspecified (principal)
CPT/HCPCS: 74018; 99284

== ENCOUNTER 2024-03-01 10:15 | Emergency (ER) | payer MEDICARE, OTHER ==
[2024-03-01 10:59] VITALS: RESP 18
--- NOTE | 2024-03-01 12:21 | XR ---
EXAMINATION TYPE: XR KUB DATE OF EXAM: 03/01/2024 12:11 PM COMPARISON: 02/24/2024 CLINICAL INDICATION: Male, 73 years old with history of abdominal pain, TECHNIQUE: XR KUB view(s) obtained. FINDINGS: Abundant bowel gas is seen in the colon. There is some small bowel loops containing air. No suspiciou s air-fluid levels or differential air-fluid levels are present. No free air is evident. No mass effe ct is present. Psoas margins are normal. No organomegaly is present. Scoliosis thoracolumbar spine IMPRESSION: 1. Nonspecific abdomen. [facility], , 03/01/2024 12:19 PM
--- NOTE | 2024-03-01 13:00 | ED ---
General Adult HPI - General Chief complaint: Abdominal Pain Stated complaint: constipation Time Seen by Provider: 03/01/24 12:31 Source: patient Mode of arrival: ambulatory Limitations: no limitations - History of Present Illness Initial comments: Dictation was produced using [employer] dictation software. please excuse any grammatical, word or spelling errors. Chief Complaint: 73-year-old male presents to the emergency department for constipation History of Present Illness: Patient 73-year-old male presents emergency department constipation. Patient denies any abdominal pain states that he was here recently for the same issue was given some mag citrate. Patient requesting some more magnesium citrate. Patient has any history of kidney issues. Patient has chronic indwelling Dinero catheter. The ROS documented in this emergency department record has been reviewed and confirmed by me. Those systems with pertinent positive or negative responses have been documented in the HPI. All other systems are other negative and/or noncontributory. - Related Data Home Medications Medication Instructions Recorded Confirmed Finasteride [Proscar] 5 mg PO HS 02/04/16 04/24/19 Previous Rx's Medication Instructions Recorded Sulfamethox-Tmp 800-160Mg [Bactrim 1 each PO Q12HR #14 tab 04/24/19 Ds] cefuroxime axetiL [Ceftin] 500 mg PO BID 10 Days #20 tab 01/24/22 Cephalexin [Keflex] 500 mg PO Q6HR 7 Days #28 cap 01/30/24 Magnesium Citrate 3 oz PO DAILY PRN #296 ml 03/01/24 Allergies Allergy/AdvReac Type Severity Reaction Status Date / Time No Known Allergies Allergy Verified 03/01/24 10:56 Review of Systems ROS Statement: Those systems with pertinent positive or pertinent negative responses have been documented in the HPI. ROS Other: All systems not noted in ROS Statement are negative. Past Medical History Past Medical History: Prostate Disorder Additional Past Medical History / Comment(s): urine retention, BPH, dinero catheter History of Any Multi-Drug Resistant Organisms: Other MDRO Past Surgical History: No Surgical Hx Reported Past Psychological History: No Psychological Hx Reported Smoking Status: Never smoker Past Alcohol Use History: None Reported Past Drug Use History: None Reported General Exam - General Exam Comments Initial Comments: PHYSICAL EXAM: General Impression: Alert and oriented x3, not in acute distress HEENT: Normocephalic atraumatic, extra-ocular movements intact, pupils equal and reactive to light bilaterally, mucous membranes moist. Cardiovascular: Heart regular rate and rhythm Chest: Able to complete full sentences, no retractions, no tachypnea Abdomen: abdomen soft, non-tender, non-distended, no organomegaly Musculoskeletal: Pulses present and equal in all extremities, no peripheral edema Motor: no focal deficits noted Neurological: CN II-XII grossly intact, no focal motor or sensory deficits noted Skin: Intact with no visualized rashes Psych: Normal affect and mood Limitations: no limitations Course Vital Signs 03/01/24 10:56 Temperature 97.7 F Pulse Rate 90 Respiratory 18 Rate Blood Pressure 137/86 O2 Sat by Pulse 99 Oximetry Medical Decision Making - Medical Decision Making Was pt. sent in by a medical professional or institution (, PA, [facility], urgent care, hospital, or penitentiary...) When possible be specific @ -No Did you speak to anyone other than the patient for history (EMS, parent, family, police, friend...)? What history was obtained from this source @ -No Did you review nursing and triage notes (agree or disagree)? Why? @ -I reviewed and agree with nursing and triage notes Were old charts reviewed (outside hosp., previous admission, EMS record, old EKG, old radiological studies, urgent care reports/EKG's, penitentiary records)? Report findings @ -No old charts were reviewed Differential Diagnosis (chest pain, altered mental status, abdominal pain women, abdominal pain men, vaginal bleeding, musculoskeletal, weakness, fever, dyspnea, syncope, headache, dizziness, GI bleed, back pain, seizure, CVA, palpatations, mental health)? @ -Differential Abdominal Pain Men: Appendicitis, cholecystitis, diverticulosis, ischemic bowel, pancreatitis, hepatitis, UTI, gastroenteritis, AAA, incarcerated hernia, bowel obstruction, constipation, inflammatory bowel, hepatitis, peptic ulcer disease, splenic infarction, perforated viscus, testicular torsion, this is not meant to be an all-inclusive list EKG interpreted by me (3pts min.). @ -None done X-rays interpreted by me (1pt min.). @ -KUB x-ray shows no acute processes CT interpreted by me (1pt min.). @ -None done U/S interpreted by me (1pt. min.). @ -None done What testing was considered but not performed or refused? (CT, X-rays, U/S, labs)? Why? @ -None What meds were considered but not given or refused? Why? @ -None Was smoking cessation discussed for >3mins.? @ -No Were there social determinants of health that impacted care today? How? (Homelessness, low income, unemployed, alcoholism, drug addiction, transportation, low edu. Level, literacy, decrease access to med. care, intermediate, rehab)? @ -No Was there de-escalation of care discussed even if they declined (Discuss DNR or withdrawal of care, Hospice)? DNR status @ -No What co-morbidities impacted this encounter? (DM, HTN, Smoking, COPD, CAD, Cancer, CVA, ARF, Chemo, Hep., AIDS, mental health diagnosis, sleep apnea, morbid obesity)? @ -None Was patient admitted / discharged? Hospital course, mention meds given and route, prescriptions, significant lab abnormalities, going to OR and other pertinent info. @ -73-year-old male with constipation. Vital signs upon arrival are within acceptable limits. Patient physical examination is unremarkable. His abdomen is nontender. X-ray shows no acute processes. Patient given some mag citrate discharged advised follow-up with primary care doctor. Did you discuss the management of the patient with other professionals (professionals i.e. , PA, [facility], lab, RT, psych nurse, healthcare social worker, manager labor relations, teacher, chief medical officer, housing case manager)? Give summary @ -No Was critical care preformed (if so, how long)? @ -No Undiagnosed new problem with uncertain prognosis? @ -No Drug Therapy requiring intensive monitoring for toxicity (Heparin, Nitro, Insulin, Cardizem)? @ -No Were any procedures done? @ -No Diagnosis/symptom? Acute, or Chronic, or Acute on Chronic? Uncomplicated (without systemic symptoms) or Complicated (systemic symptoms)? @ -Acute constipation Side effects of treatment? @ -No Exacerbation, Progression, or Severe Exacerbation? @ -No Poses a threat to life or bodily function? How? (Chest pain, [place], [place], pneumonia, PE, COPD, DKA, ARF, appy, cholecystitis, CVA, Diverticulitis, Homicidal, Suicidal, threat to staff... and all critical care pts) @ -No Disposition Clinical Impression: Constipation Disposition: HOME SELF-CARE Condition: Good Instructions (If sedation given, give patient instructions): Constipation (ED) Prescriptions: Magnesium Citrate 3 oz PO DAILY PRN #296 ml PRN Reason: Constipation Is patient prescribed a controlled substance at d/c from ED?: No Referrals: Keith Cummings MD [Primary Care Provider] - 1-2 days Time of Disposition: 13:00
[2024-03-01] MEDS: MAGNESIUM CITRATE 296 ML BOTTLE PO ONE (13:06)
[2024-03-01 13:09] VITALS: BP 121/83; PULSE 67; TEMP 98.1
== END 2024-03-01 13:09 | disposition home or self-care (01) ==
LOC: EC 10:15
DX: K59.00 Constipation, unspecified (principal)
CPT/HCPCS: 74018; 99284

== ENCOUNTER 2024-06-03 00:44 | Emergency (ER) | payer MEDICARE, OTHER ==
[2024-06-03 00:47] VITALS: RESP 18
[2024-06-03 01:41] LABS: Amorphous Sediment,Urine Rare /hpf; Appearance,Urine Cloudy (Clear); Bacteria,Urine Occasional /hpf; Bilirubin,Urine Negative (Negative); Blood,Urine Moderate (Negative); Budding Yeast,Urine Many /hpf; Color,Urine Colorless; Glucose,Urine (UA) Negative (Negative); Ketones,Urine Negative (Negative); Leukocyte Esterase,Urine Large (Negative); Mucus,Urine Rare /hpf; Nitrite,Urine Positive (Negative); PH, Urine 6.5 (5.0-8.0); Protein,Urine 1+ (Negative); RBC,Urine 34 /hpf (0-5); Specific Gravity,Urine 1.009 (1.001-1.035); Urobilinogen,Urine <2.0 mg/dL (<2.0); WBC,Urine >182 /hpf (0-5)
--- NOTE | 2024-06-03 01:56 | ED ---
Male Urogenital HPI - General Chief complaint: Urogenital Stated complaint: blocked cath Time Seen by Provider: 06/03/24 00:54 Source: patient Mode of arrival: ambulatory Limitations: no limitations - History of Present Illness Initial comments: 73-year-old male presenting with chief complaint of occluded Dinero catheter. Patient has a chronic indwelling Dinero catheter that he has replaced monthly by his urologist. He reports that it stopped draining after dinner tonight. He is having some suprapubic pressure. No fever, chills, flank pain, nausea, vomiting. - Related Data Home Medications Medication Instructions Recorded Confirmed Finasteride [Proscar] 5 mg PO HS 02/04/16 04/24/19 Previous Rx's Medication Instructions Recorded Sulfamethox-Tmp 800-160Mg [Bactrim 1 each PO Q12HR #14 tab 04/24/19 Ds] cefuroxime axetiL [Ceftin] 500 mg PO BID 10 Days #20 tab 01/24/22 Cephalexin [Keflex] 500 mg PO Q6HR 7 Days #28 cap 01/30/24 Magnesium Citrate 3 oz PO DAILY PRN #296 ml 03/01/24 Sulfamethox-Tmp 800-160Mg [Bactrim 1 tab PO Q12HR 7 Days #14 tab 06/03/24 DS 800-160 mg] Allergies Allergy/AdvReac Type Severity Reaction Status Date / Time No Known Allergies Allergy Verified 06/03/24 00:47 Review of Systems ROS Statement: Those systems with pertinent positive or pertinent negative responses have been documented in the HPI. ROS Other: All systems not noted in ROS Statement are negative. Past Medical History Past Medical History: Prostate Disorder Additional Past Medical History / Comment(s): urine retention, BPH, dinero catheter History of Any Multi-Drug Resistant Organisms: Other MDRO Past Surgical History: No Surgical Hx Reported Past Psychological History: No Psychological Hx Reported Smoking Status: Never smoker Past Alcohol Use History: None Reported Past Drug Use History: None Reported General Exam Limitations: no limitations General appearance: alert, in no apparent distress Head exam: Present: atraumatic, normocephalic, normal inspection Eye exam: Present: normal appearance, EOMI Neck exam: Present: normal inspection. Absent: meningismus Respiratory exam: Absent: respiratory distress Cardiovascular Exam: Present: regular rate Neurological exam: Present: alert, oriented X3 Psychiatric exam: Present: normal affect, normal mood Skin exam: Present: warm, dry, normal color Course Vital Signs 06/03/24 06/03/24 00:45 02:02 Temperature 97.8 F 97.6 F Pulse Rate 71 73 Respiratory 18 18 Rate Blood Pressure 175/104 150/103 O2 Sat by Pulse 99 97 Oximetry Medical Decision Making - Medical Decision Making Was pt. sent in by a medical professional or institution (, [facility], [employer], urgent care, hospital, or alf...) When possible be specific @ -No Did you speak to anyone other than the patient for history (EMS, parent, family, police, friend...)? What history was obtained from this source @ -No Did you review nursing and triage notes (agree or disagree)? Why? @ -I reviewed and agree with nursing and triage notes Were old charts reviewed (outside hosp., previous admission, EMS record, old EKG, old radiological studies, urgent care reports/EKG's, alf records)? Report findings @ -No old charts were reviewed Differential Diagnosis (chest pain, altered mental status, abdominal pain women, abdominal pain men, vaginal bleeding, weakness, fever, dyspnea, syncope, headache, dizziness, GI bleed, back pain, seizure, CVA, palpatations, mental health, musculoskeletal)? @ -Differential includes's catheter malfunction, stone, mass, UTI, not an all- inclusive list EKG interpreted by me (3pts min.). @ -As above X-rays interpreted by me (1pt min.). @ -None done CT interpreted by me (1pt min.). @ -None done U/S interpreted by me (1pt. min.). @ -None done What testing was considered but not performed or refused? (CT, X-rays, U/S, labs)? Why? @ -None What meds were considered but not given or refused? Why? @ -None Did you discuss the management of the patient with other professionals (professionals i.e. [facility], [employer]IDENT, lab, RT, psych nurse, nephrology social worker, plasterer stucco, teacher, geological technical officer, egg caser)? Give summary @ -No Was smoking cessation discussed for >3mins.? @ -No Was critical care preformed (if so, how long)? @ -No Were there social determinants of health that impacted care today? How? (Homelessness, low income, unemployed, alcoholism, drug addiction, transportation, low edu. Level, literacy, decrease access to med. care, senior living, rehab)? @ -No Was there de-escalation of care discussed even if they declined (Discuss DNR or withdrawal of care, Hospice)? DNR status @ -No What co-morbidities impacted this encounter? (DM, HTN, Smoking, COPD, CAD, Cancer, CVA, ARF, Chemo, Hep., AIDS, mental health diagnosis, sleep apnea, morbid obesity)? @ -None Was patient admitted / discharged? Hospital course, mention meds given and route, prescriptions, significant lab abnormalities, going to OR and other pertinent info. @ -73-year-old male presenting with chief complaint of "my catheter will not drain". He has a chronic indwelling Dinero catheter. He has some suprapubic pressure with no flank pain nausea vomiting or fever. Dinero catheter is replaced by nursing staff. Urine is positive for large leukocytes moderate blood and positive nitrites. Patient will be treated with Bactrim and urine is sent for culture. Follow-up with urology. Follow-up with PCP. Report back to ER with any new or worsening symptoms. Discussed return parameters and answered all questions. Patient conveyed verbal understanding and agreed to the plan. I discussed this case in detail with my attending Dr. Chase Undiagnosed new problem with uncertain prognosis? @ -No Drug Therapy requiring intensive monitoring for toxicity (Heparin, Nitro, Insulin, Cardizem)? @ -No Were any procedures done? @ -No Diagnosis/symptom? @ -Dinero catheter occlusion, UTI Acute, or Chronic, or Acute on Chronic? @ -Acute Uncomplicated (without systemic symptoms) or Complicated (systemic symptoms)? @ -Uncomplicated Side effects of treatment? @ -No Exacerbation, Progression, or Severe Exacerbation? @ -No Poses a threat to life or bodily function? How? (Chest pain, [place], [place], pneumonia, PE, COPD, DKA, ARF, appy, cholecystitis, CVA, Diverticulitis, Homicidal, Suicidal, threat to staff... and all critical care pts) @ -Unlikely - Lab Data Lab Results 06/03/24 Range/Units 01:21 Urine Color Colorless Urine Appearance Cloudy (Clear) Urine pH 6.5 (5.0-8.0) Ur Specific [place] 1.009 (1.001-1.035) Urine Protein 1+ H (Negative) Urine Glucose (UA) Negative (Negative) Urine Ketones Negative (Negative) Urine Blood Moderate H (Negative) Urine Nitrite Positive (Negative) Urine Bilirubin Negative (Negative) Urine Urobilinogen <2.0 (<2.0) mg/dL Ur Leukocyte Esterase Large H (Negative) Urine RBC 34 H (0-5) /hpf Urine WBC >182 H (0-5) /hpf Urine WBC Clumps Many H (None) /hpf Amorphous Sediment Rare H (None) /hpf Urine Bacteria Occasional H (None) /hpf Urine Mucus Rare H (None) /hpf Urine Yeast (Budding) Many H (None) /hpf Disposition Clinical Impression: Malfunction of Dinero catheter, UTI (urinary tract infection) Disposition: HOME SELF-CARE Condition: Good Instructions (If sedation given, give patient instructions): Urinary Tract Infection in Men (ED) Additional Instructions: Follow-up with your urologist. Report back to ER with any new or worsening symptoms. Prescriptions: Sulfamethox-Tmp 800-160Mg [Bactrim DS 800-160 mg] 1 tab PO Q12HR 7 Days #14 tab Is patient prescribed a controlled substance at d/c from ED?: No Referrals: Keith Cummings MD [Primary Care Provider] - 1-2 days Time of Disposition: 01:56
[2024-06-03 02:03] VITALS: BP 150/103; PULSE 73; TEMP 97.6
[2024-06-03] MEDS: SULFAMETHOX-TMP 800-160MG 1 EACH TAB PO STA (02:05)
== END 2024-06-03 02:08 | disposition home or self-care (01) ==
LOC: EC 00:44
DX: T83.098A Other mechanical complication of other urinary catheter, initial encounter (principal); N39.0 Urinary tract infection, site not specified
CPT/HCPCS: 51702; 81001; 87086; 99283

== ENCOUNTER → 2024-08-30 | Outpatient (CLI) | payer MEDICARE, OTHER ==
--- NOTE | 2024-08-30 20:06 | MR ---
EXAMINATION TYPE: MR liver wo/w con DATE OF EXAM: 08/30/2024 5:31 PM COMPARISON: CT 07/21/2024 CLINICAL INDICATION: Male, 73 years old with history of D37.6 NEOPLASM OF UNCERTAIN BEHAVIOR OF LIVER , GB; PH[facility], abnormal CT liver mass TECHNIQUE: Multiplanar multi-sequence imaging was performed without contrast. Post contrast imaging was performed. Post IV contrast subtraction images were also submitted for review. IV Contrast: 6.5 mL Gadobutrol FINDINGS: LOWER CHEST: The heart is mildly enlarged for size. ABDOMEN Liver: * No evidence for hepatic steatosis or cirrhosis. Signal dropout on chemical shift in phase imaging. * Cysts are seen in the high T2 signal cysts are seen within the liver parenchyma largest in segment 4A measuring up to 15 mm. * Lesion in the posterior aspect of the right hepatic lobe segment 5/6 measures 3.3 x 3.1 cm. Demons trates nearly isointense signal on T2-weighted imaging is higher signal on DWI weighted imaging. Ther e is intrinsic high T1-weighted signal. No evidence for postcontrast enhancement confirmed on subtrac tion imaging. Few scattered calcifications are present along the capsule. Gallbladder and Bile ducts: No evidence for ductal dilation, or biliary stricture or evidence of chol edocholithiasis. The gallbladder is within normal limits. Pancreas: No ductal dilation. No evidence for solid mass. Spleen: Normal for size. Adrenal glands: Unremarkable. Kidneys: No evidence for obstructive uropathy. No suspicious renal masses. Stomach and Bowel: No evidence for bowel wall thickening or evidence for obstruction. Retroperitoneum/Peritoneum: No evidence of pneumoperitoneum or free fluid. Vasculature: No aortic aneurysm. Musculoskeletal: The osseous structures appear intact. Lymph Nodes: No gross evidence for lymphadenopathy. Abdominal wall: Unremarkable. Limited pelvis: There is a Manrique catheter in place with a enlarged prostate gland measuring at least 7.1 x 8.1 cm. Bladder stone is present. IMPRESSION: 1. Right hepatic lobe lesion demonstrates no evidence of enhancement which is confirmed on subtracti on imaging. Given its intrinsic high T1 signal findings are favored to represent proteinaceous versus hemorrhagic cyst. Correlate for history of procedure. 2. Iron deposition in the liver and spleen. 3. Simple appearing hepatic cysts measuring up to 15 mm. 4. Cardiomegaly. 5. Prostatomegaly, correlate with serum PSA. 6. Bladder stone present. 7. Portacatheter in appropriate position. [facility], , 08/30/2024 8:04 PM
== END | disposition home or self-care (01) ==
LOC: RADMRIMAIN 16:31
PROVIDERS: ATTEND Urology
DX: D37.6 Neoplasm of uncertain behavior of liver, gallbladder and bile ducts (principal); K76.89 Other specified diseases of liver; I51.7 Cardiomegaly; N40.0 Benign prostatic hyperplasia without lower urinary tract symptoms; N21.0 Calculus in bladder
CPT/HCPCS: 74183; A9585